=== PATIENT | male | born 1950 | race Caucasian/White ===

== ENCOUNTER 2020-03-01 14:36 | Outpatient (CLI) | payer MEDICARE, SELFPAY ==
--- NOTE | ~2020-03-01 | XR_ITS ---
EXAMINATION: XR foot RT min 3V DATE: 03/01/2020 14:51 INDICATION: Gout. Pain at the right great toe. TECHNIQUE: Dorsoplantar, two oblique and lateral views of the right foot were obtained. COMPARISON: None. FINDINGS: Mild valgus evaluation at the second distal interphalangeal joint with hypoplastic lateral head of th e middle phalanx which could be developmental or sequela of old trauma. Bone alignment is otherwise n ormal. No acute fracture. Mild polyarticular osteoarthritis at multiple joints throughout the right f oot and ankle most prominent at the tibiotalar, first metatarsophalangeal and first interphalangeal j oints. Heterotopic ossicles at the medial and lateral malleoli likely sequela of old trauma. Moderate -sized plantar calcaneal spur. Tiny enthesopathic ossicles at the distal Achilles tendon. No cortical erosions to suggest gout or other inflammatory arthritis. IMPRESSION: 1. No acute osseous abnormality or erosions to suggest an inflammatory arthritis such as gout. 2. Degenerative changes including mild polyarticular osteoarthritis and calcaneal enthesopathy. 2. Heterotopic ossicles at the medial lateral malleolus likely sequela of old trauma. Reviewed, dictated and finalized at location A. IMPRESSION: 1. No acute osseous abnormality or erosions to suggest an inflammatory arthriti s such as gout. 2. Degenerative changes including mild polyarticular osteoarthritis and calcane al enthesopathy. 2. Heterotopic ossicles at the medial lateral malleolus likely sequela of old t rauma.
== END 2020-03-01 14:37 | disposition home or self-care (01) ==
LOC: ANHIMG 14:39
PROVIDERS: PCP Internal Medicine; Visit Provider Internal Medicine
DX: M79.674 Pain in right toe(s) (principal)
CPT/HCPCS: 73630

== ENCOUNTER 2020-06-07 12:14 | Inpatient (IN) | payer MEDICARE, SELFPAY ==
[2020-06-07] VITALS (18 sets, daily range): BP systolic 120–145; BP diastolic 62–74; PULSE 48–71; RESP 16–29; TEMP 35.7–35.9; O2SAT 85–100
--- NOTE | ~2020-06-07 | CT_ITS ---
EXAMINATION: CT brain wo con INDICATION: Dizziness COMPARISON: None TECHNIQUE: Standard unenhanced head CT. The dose-length product (DLP) was 681.00 mGy-cm. The mA was a djusted according to patient size. Iterative reconstruction technique was employed. FINDINGS: There is no intracranial hemorrhage, acute infarction, or abnormal mass lesion. The ventric les are normal. There is no abnormal mass effect or midline shift. The jin-white matter differentiat ion is normal. The basal cisterns are patent. The orbits are normal. There is mild mucosal thickening of the paranasal sinuses. 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 IMPRESSION: 1. No acute intracranial abnormality. Reviewed, dictated and finalized at location A.
--- NOTE | ~2020-06-07 | XR_ITS ---
EXAMINATION: XR abdomen/kub 1V DATE: 06/08/2020 01:15 INDICATION: Vomiting. TECHNIQUE: A supine view of the abdomen on 2 radiographs was obtained. COMPARISON: None. FINDINGS: There are no dilated loops of bowel. There is a moderate volume of stool in the colon. Ther e is contrast in the renal collecting system. IMPRESSION: 1. Nonobstructive bowel gas pattern. Reviewed, dictated and finalized at location A.
--- NOTE | ~2020-06-07 | MR_ITS ---
EXAMINATION: MR brain/brain stem wo/w con EXAM DATE: 06/08/2020 13:43 INDICATION: Intractable dizziness. TECHNIQUE: Magnetic resonance imaging (MRI) of the brain/brain stem obtained without contrast. Sagit flora T1, axial diffusion, gradient echo (T2*), T1, T2, FLAIR sequences obtained. Patient was then inj ected with 18 cc intravenous Multihance contrast. Axial and coronal postcontrast T1 weighted sequence s obtained. Comparison is made to prior examination from 03/16/2016. FINDINGS: There are no areas of restricted diffusion to suggest acute infarction. There is no acute hemorrhage seen on the T2*, a hemosiderin sensitive sequence. No intraparenchymal brain mass lesion. There is mild periventricular and subcortical T2/FLAIR signal hyperintensity, nonspecific but probab ly related to small vessel ischemic disease (microangiopathy). There is prominence of the sulci and ventricles related to cerebral atrophy. There are no extra-axial collections. Flow voids are seen in the cerebral arteries on the T2-weighted sequences consistent with their expected patency. The o rbits are unremarkable. Soft tissue is unremarkable. There are no areas of abnormal enhancement on the post contrast images. IMPRESSION: 1. No acute intracranial findings. 2. Chronic age related findings. Reviewed, dictated and finalized at location B.
--- NOTE | ~2020-06-07 | MR_ITS ---
EXAMINATION: MR cervical spine wo/w con EXAM DATE: 06/08/2020 13:43 INDICATION: Intractable dizziness. TECHNIQUE: Multi-sequential, multiplanar MR images of the cervical spine were obtained without contra st. Axial T2, axial T2 MERGE sequence. Sagittal T1, T2, T2 fat saturation images also obtained. Axi al T1 weighted sequence. Patient was then injected with 18 mL Multihance intravenous contrast and re imaged. Postcontrast axial and sagittal T1-weighted fat saturation sequences were obtained. There ar e no prior studies for comparison. FINDINGS: Mild to moderate disc disease at C5-6, mild at C6-7. The vertebral bodies are aligned in t he AP dimension. There are no suspicious marrow signal abnormalities. The spinal cord signal intensit y and intrinsic morphology is normal. Cervicomedullary junction is normal in appearance. There are no areas of abnormal enhancement on the post contrast images. Level by level evaluation: C2-C3: Disc does not extend beyond the endplate margin. Uncovertebral joint arthropathy: None. Facet joint arthropathy: Moderate right, mild left. Neural foraminal stenosis: Mild right. Central canal stenosis: No stenosis. C3-C4: There is a mild diffuse disc bulge. Uncovertebral joint arthropathy: Moderate right, mild left. Facet joint arthropathy: Moderate bilateral. Neural foraminal stenosis: Moderate to severe right, mild left. Central canal stenosis: Mild. C4-C5: There is a mild diffuse disc bulge. Uncovertebral joint arthropathy: Mild to moderate bilateral. Facet joint arthropathy: Moderate right, mild to moderate left. Neural foraminal stenosis: Moderate bilateral. Central canal stenosis: Mild. C5-C6: There is a mild diffuse disc bulge. Uncovertebral joint arthropathy: Moderate to severe bilateral. Facet joint arthropathy: Moderate to severe right, mild to moderate left. Neural foraminal stenosis: Severe right, moderate to severe left. Central canal stenosis: Mild. C6-C7: There is a minimal diffuse disc bulge. Uncovertebral joint arthropathy: Moderate right, mild to moderate left. Facet joint arthropathy: Moderate right, mild left. Neural foraminal stenosis: Moderate to severe right, mild left. Central canal stenosis: No stenosis. C7-T1: Disc does not extend beyond the endplate margin. Uncovertebral joint arthropathy: Mild bilateral. Facet joint arthropathy: Mild to moderate bilateral. Neural foraminal stenosis: No stenosis. Central canal stenosis: No stenosis. IMPRESSION: 1. Significant mid cervical neural foraminal stenosis as detailed above. 2. Normal cord signal. Reviewed, dictated and finalized at location B.
--- NOTE | ~2020-06-07 | CT_ITS ---
EXAMINATION: CTA brain carotid DATE: 06/07/2020 19:25 INDICATION: Dizziness TECHNIQUE: Computed tomographic angiography (CTA) of the head was performed without and with 100 mL O mnipaque-350 intravenous contrast. CTA of the neck was performed with intravenous contrast. The dose- length product was 1289.16 mGy-cm. Maximum intensity projection and volume rendered 3D-reconstruction s were created by the technologist on a separate workstation. Automated exposure control and iterativ e reconstruction technique were employed. COMPARISON: None. FINDINGS: HEAD CTA: There is no intracranial hemorrhage, acute infarction, or abnormal mass lesion. The ventric les are normal. There is no abnormal mass effect or midline shift. The jin-white matter differentiat ion is normal. The basal cisterns are patent. The orbits are normal. There is mild mucosal thickening of the paranasal sinuses. There is no significant stenosis of the basilar artery or posterior cerebral arteries. There is no si gnificant stenosis of the intracranial internal carotid arteries or the anterior or middle cerebral a rteries. The anterior communicating artery and posterior communicating arteries are normal. There is no aneurysm. NECK CTA: The thyroid gland is unremarkable. The submandibular and parotid glands are symmetric. Ther e is no lymphadenopathy. There are no masses identified. The airway is unremarkable. There are no oss eous abnormalities. The superior mediastinum is unremarkable. 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 There is 0% stenosis of the proximal right internal carotid artery relative to normal distal artery l umen diameter (NASCET criteria). There is 0% stenosis of the proximal left internal carotid artery re lative to normal distal artery lumen diameter. IMPRESSION: 1. No acute intracranial abnormality. Normal head CTA. 2. 0% stenosis of the proximal right internal carotid artery relative to normal distal artery lumen d iameter (NASCET criteria). 3. 0% stenosis of the proximal left internal carotid artery relative to normal distal artery lumen di ameter. Reviewed, dictated and finalized at location A. IMPRESSION: 1. No acute intracranial abnormality. Normal head CTA. 2. 0% stenosis of the proximal right internal carotid artery relative to normal distal artery lumen diameter (NASCET criteria). 3. 0% stenosis of the proximal left internal carotid artery relative to normal distal artery lumen diameter.
--- NOTE | 2020-06-07 12:27 | ECG_ITS ---
Measurements Intervals [place] Rate: 67 P: 15 DC: 132 QRS: 28 QRSD: 105 T: 38 QT: 391 QTc: 414 Interpretive Statements SINUS RHYTHM NORMAL ECG Electronically Signed On 06-07-2020 12:54:03 CDT by Xu Gaines D.O.
[2020-06-07 12:41] LABS: Basophils Percent Auto 0.4 % (0.2-1.2); Eosinophils Absolute Auto 0.1 K/mm3 (0-0.3); Eosinophils Percent Auto 0.7 % (0-4.4); Hemoglobin 14.3 g/dL (14.0-18.0); Immature Granulocyte Absolute 0.01 K/mm3 (0.00-0.031); Immature Granulocyte Percent A 0.1 % (0-0.5); Lymphocytes Absolute Auto 1.42 K/mm3 (0.9-3.2); Lymphocytes Percent Auto 19.1 % (18.3-44.2); Mean Corpuscular HGB Conc 35.8 g/dl (32-36); Mean Corpuscular Hemoglobin 32.1 pg (26-34); Mean Corpuscular Volume 89.9 fl (80-100); Mean Platelet Volume 8.6 fl (7.4-10.4); Monocytes Absolute Auto 0.4 K/mm3 (0.1-0.6); Neutrophils Absolute Auto 5.6 K/mm3 (1.3-6.7); Neutrophils Percent Auto 74.7 % (45.5-73.1); Platelet Count Result 182 k/mm3 (150-375); Red Blood Count 4.45 M/mm3 (4.6-6.20); Red Cell Distribution Width 11.9 % (11.5-14.5); White Blood Count 7.4 K/mm3 (4.5-10.0)
[2020-06-07 12:49] LABS: Anion Gap 11 mmol/L (8-16); Blood Urea Nitrogen 19 mg/dL (9-20); Calcium 9.5 mg/dL (8.4-10.2); Carbon Dioxide 21 mmol/L (22-30); Chloride 103 mmol/L (98-107); Estimated CRCL calculation 79 ml/min; Estimated Glomerular Filt Rate > 60; Glucose 137 mg/dL (75-110); Potassium 4.4 mmol/L (3.4-5.0); Sodium 135 mmol/L (137-145)
--- NOTE | 2020-06-07 17:49 | PC.NURSE ---
PT AGAIN COMPLAINING THAT HE IS NOT IN A ROOM AND IS DIZZY AND IS GOING TO FALL OUT OF THE W/C. VS 70 HR, 18 RR, 100% ON RA, AND BP CLEMENTE 138/71. PT UPDATED ON ROOM SITUATION.
--- NOTE | 2020-06-07 19:46 | ED.GENADULT ---
HPI - General Adult General Chief complaint: Dizziness Stated complaint: came down with a dizzy spell yesterday Time Seen by Provider: 06/07/20 18:57 Source: patient History of Present Illness HPI narrative: Patient is 70 y/o male complaining of severe dizziness since 3:00 PM yesterday. He describes the dizziness as a room spinning sensation. He states that getting up makes his dizziness worse. He has some nausea and vomiting. He denies any focal weakness or numbness. Related Data Home Medications Medication Instructions Recorded Confirmed amitriptyline 25 mg tablet 25 mg PO HS 08/27/19 06/08/20 fluticasone propionate 50 2 spray NASAL DAILY 08/27/19 06/08/20 mcg/actuation nasal spray,suspension loratadine 10 mg tablet 10 mg PO DAILY 08/27/19 06/08/20 omega-3 fatty acids 1,000 mg 1,000 mg PO BID 08/27/19 06/08/20 capsule tamsulosin 0.4 mg capsule 0.4 mg PO BID cap 08/27/19 06/08/20 diltiazem HCl 180 mg PO DAILY 06/08/20 06/08/20 lisinopril 10 mg PO DAILY 06/08/20 06/08/20 Allergies Allergy/AdvReac Type Severity Reaction Status Date / Time Sulfa (Sulfonamide Allergy Intermediate Rash Verified 06/07/20 12:27 Antibiotics) PROPOXYPHENE HCL Allergy Unknown Nervousness Uncoded 06/07/20 12:27 PROPOXYPHENE NAPSYLATE Allergy Unknown Nervousness Uncoded 06/07/20 12:27 Review of Systems Constitutional: Constitutional: Denies chills, Denies fever(s), Denies headache(s) and Denies weakness Eyes: Eyes: Denies blurry vision ENT: Denies headache(s) and Denies neck pain Cardiovascular: Cardiovascular: Denies chest pain and Denies dyspnea Respiratory: Respiratory: Denies cough and Denies dyspnea Gastrointestinal: Gastrointestinal: Denies abdominal pain, Denies diarrhea, Reports nausea and Reports vomiting Genitourinary: Genitourinary: Denies hematuria and Denies dysuria Musculoskeletal: Musculoskeletal: Denies back pain and Denies neck pain Neurologic: Reports dizziness, Denies headache(s) and Denies weakness [facility] Past Medical History Medical History (Updated 06/08/20 @ 12:18 by Romelia Sexton MD) Allergies Chronic sinusitis Essential (primary) hypertension Fungal infection of toenail Gout Hyperlipidemia Lower urinary tract symptoms (LUTS) Migraines Right foot pain Surgical History Surgical History (Updated 06/08/20 @ 09:15 by Bella Bright PA-C) History of ankle surgery Hx of sinus surgery Family History Family History (Updated 06/08/20 @ 09:16 by Bella Bright PA-C) Mother Diabetes mellitus Coronary artery disease Father Coronary artery disease Sibling Parkinson disease Sibling Parkinson disease Social History Social History (Updated 06/08/20 @ 09:20 by Bella Bright PA-C) Social History: Mr. Laboy lives in [place] with his Alaina. 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 He denies alcohol use, and other illicit substance use. He wishes to be a full code and he has designated his , Alaina Laboy, to be his surrogate decision maker. Smoking status: Never smoker Alcohol intake: never Substance use: never Substance use type: does not use Living arrangements: with family Occupation/Education: other Gender identity (if verbalized by the patient): Male Spiritual care concerns: No Exam Const: General: no acute distress and well developed Orientation/consciousness: oriented to person, oriented to place, oriented to time and patient oriented x3 HENMT: Head: normocephalic Ears: external ears normal General nose exam: Normal external nose present Eyes: General: appearance normal, both eyes and all related structures Conjunctivae: conjunctivae normal Neck: Neck: normal visual inspection and full ROM Chest: Chest palpation & inspection: normal inspection of the chest and no tenderness Resp: Effort & Inspection: normal respiratory effort Auscultation: clear to ausculta
[2020-06-07] MEDS: MECLIZINE HCL 25 MG TABLET PO (20:05)
[2020-06-07] MEDS: ONDANSETRON INJ 4 MG/2 ML VIAL IV PUSH (20:05)
[2020-06-07] MEDS: diazePAM INJ (*CRX) 10 MG/2 ML SYRINGE 5 MG IV PUSH (22:35)
--- NOTE | 2020-06-07 23:35 | ADMGEN ---
This patient, Elia Laboy, was admitted to 2 Medical Room 241-. Patient/family oriented to hospital policies and general routines including ID bracelet, bed and alarms, visiting hours, pain management, procedures, bathroom and other care routines, personal items, smoking policy, room service/diet, and visiting hours. Valuables list has been completed. Information on how to activate the Rapid Response Team has been discussed. Patient/Family are encouraged to report perceived risks to care and to ask questions if they do not understand what they are told or what they should do.
[2020-06-08] VITALS (14 sets, daily range): BP systolic 133–160; BP diastolic 52–72; PULSE 48–78; RESP 16–20; TEMP 36.1–36.7; O2SAT 98–100; BMI 26.4
[2020-06-08] MEDS: SODIUM CHLORIDE 0.9% IV 1,000 ML 999 ML IV CONT ×2 (02:46→03:44)
[2020-06-08] MEDS: ONDANSETRON INJ 4 MG/2 ML VIAL IV PUSH (02:50)
[2020-06-08] MEDS: SODIUM CHLORIDE 0.9% IV 1,000 ML 100 ML IV CONT ×2 (04:53→17:52)
--- NOTE | 2020-06-08 08:54 | PM.IMHP ---
H&P: HPI History of Present Illness Date/Time: 06/08/20 08:54 Chief complaint: dizziness Narrative: Elia Laboy is a 70 year old male with PMH significant for migraine headaches, hypertension, hyperlipidemia, gout, lower urinary tract symptoms, and allergies who presented to the emergency department for the evaluation of dizziness. Symptoms started Sunday06/06/20 at 3:30PM. He reports that he went to the park to have a socially distanced meal with friends. He started to drive home and felt very dizzy. He reports an associated migraine at that time but cannot remember if the dizziness or migraine started first. He describes that he feels both the room is spinning and he is spinning intermittently. He developed vomiting at noon yesterday and has vomited 10x since then. His dizziness is worse with standing up. He notes relief with meclizine. Valium made his symptoms worse. He denies associated vision change, speech change, hearing change, tinnitus, ear drainage or discharge, unilateral weakness, paresthesias, dysphagia, and photophobia. He has no prior hx of vertigo or similar episodes. He has not had much to eat or drink since his symptoms started. He continues to have nausea. His last episode of vomiting was overnight but he began to feel nauseous after clear liquids today. Review of Systems Review of Systems: Narrative: Constitutional: Denies fever, chills, fatigue, sick contacts, and appetite change. Eyes: Denies vision change. Denies photophobia. Denies diplopia. No additional eye complaints. ENT: Denies change in hearing, tinnitus, nasal congestion, dysphagia, odynophagia, and sore throat. Cardiovascular: Denies palpitations and chest pain. Denies PND and orthopnea. Denies dyspnea on exertion. Respiratory: Denies cough and shortness of breath. Gastrointestinal: Denies abdominal pain,. Reports associated nausea and vomiting with dizziness. Genitourinary: Denies dysuria, urgency, and hesitancy. Reports hx of increased urinary frequency which is relieved with tamsulosin. Musculoskeletal: Denies joint pain and swelling. Denies muscle cramps and weakness. Skin: Denies lesions and wounds. Neurologic: Denies focal weakness, paresthesias, confusion, vision change, headache, and speech change. Reports hx of migraines for 5 years. Psychiatric: Denies mood change. Denies anxiety and depression. Hematologic: Denies easy bruising and bleeding. All systems reviewed & are unremarkable except as noted in HPI and below PMFSH Past Medical History Medical History (Updated 06/08/20 @ 12:18 by Romelia Sexton MD) Allergies Chronic sinusitis Essential (primary) hypertension Fungal infection of toenail Gout Hyperlipidemia Lower urinary tract symptoms (LUTS) Migraines Right foot pain Surgical History Surgical History (Updated 06/08/20 @ 09:15 by Bella Bright PA-C) History of ankle surgery Hx of sinus surgery Family History Family History (Updated 06/08/20 @ 09:16 by Bella Bright PA-C) Mother Diabetes mellitus Coronary artery disease Father Coronary artery disease Sibling Parkinson disease Sibling Parkinson disease Social History Social History (Updated 06/08/20 @ 09:20 by Bella Bright PA-C) Social History: Mr. Laboy lives in [place] with his Alaina. 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 He denies alcohol use, and other illicit substance use. He wishes to be a full code and he has designated his , Alaina Laboy, to be his surrogate decision maker. Smoking status: Never smoker Alcohol intake: never Substance use: never Substance use type: does not use Living arrangements: with family Occupation/Education: other Gender identity (if verbalized by the patient): Male Spiritual care concerns: No Meds Home Medications and Allergies Home Medications Medication Instructions Recorded Confirmed Type amitriptyline 2
[2020-06-08] MEDS: allopurinoL 100 MG TABLET PO (09:15)
[2020-06-08] MEDS: FLUTICASONE PROPIONATE 0.05% NA SPR 16 GM BTL (*BKC) 2 SPRAY NASAL (09:15)
[2020-06-08] MEDS: EZETIMIBE 10 MG TABLET PO (09:15)
[2020-06-08] MEDS: TAMSULOSIN HCL 0.4 MG CAPSULE PO ×2 (09:15→16:30)
[2020-06-08] MEDS: MECLIZINE HCL 12.5 MG TABLET 25 MG PO ×4 (09:15→20:33)
[2020-06-08] MEDS: lisinopriL 10 MG TABLET PO (09:15)
[2020-06-08] MEDS: OMEGA 3 POLYUNSAT FATTY ACIDS 1 GM CAP PO ×2 (09:15→16:30)
[2020-06-08] MEDS: LORATADINE 10 MG TABLET PO (09:16)
[2020-06-08] MEDS: dilTIAZem HCL CD 180 MG CAP.ER.24H PO (09:16)
[2020-06-08] MEDS: ENOXAPARIN 40 MG/0.4 ML SYRINGE SUB-Q (10:17)
[2020-06-08] MEDS: predniSONE 20 MG TABLET 60 MG PO (17:52)
[2020-06-08] MEDS: AMITRIPTYLINE HCL 25 MG TABLET PO (20:33)
[2020-06-09] VITALS (7 sets, daily range): BP systolic 124–138; BP diastolic 48–55; PULSE 46–81; RESP 15–16; TEMP 36.7–36.8; O2SAT 96–100
[2020-06-09] MEDS: SODIUM CHLORIDE 0.9% IV 1,000 ML 100 ML IV CONT (02:25)
[2020-06-09 05:05] LABS: Anion Gap 5 mmol/L (8-16); Blood Urea Nitrogen 17 mg/dL (9-20); Calcium 8.9 mg/dL (8.4-10.2); Carbon Dioxide 24 mmol/L (22-30); Chloride 107 mmol/L (98-107); Estimated CRCL calculation 72 ml/min; Estimated Glomerular Filt Rate > 60; Glucose 137 mg/dL (75-110); Potassium 4.6 mmol/L (3.4-5.0); Sodium 136 mmol/L (137-145)
[2020-06-09] MEDS: MECLIZINE HCL 12.5 MG TABLET 25 MG PO (08:08)
[2020-06-09] MEDS: FLUTICASONE PROPIONATE 0.05% NA SPR 16 GM BTL (*BKC) 2 SPRAY NASAL (08:08)
[2020-06-09] MEDS: OMEGA 3 POLYUNSAT FATTY ACIDS 1 GM CAP PO (08:09)
[2020-06-09] MEDS: dilTIAZem HCL CD 180 MG CAP.ER.24H PO (08:09)
[2020-06-09] MEDS: allopurinoL 100 MG TABLET PO (08:10)
[2020-06-09] MEDS: lisinopriL 10 MG TABLET PO (08:11)
[2020-06-09] MEDS: TAMSULOSIN HCL 0.4 MG CAPSULE PO (08:11)
[2020-06-09] MEDS: ENOXAPARIN 40 MG/0.4 ML SYRINGE SUB-Q (08:11)
[2020-06-09] MEDS: predniSONE 20 MG TABLET 60 MG PO (08:11)
[2020-06-09] MEDS: LORATADINE 10 MG TABLET PO (08:12)
--- NOTE | 2020-06-09 08:25 | PM.DS ---
DS: Admitting Diagnosis Admitting Diagnosis Admitting Diagnosis: dizziness DS: Discharge Diagnosis Discharge Diagnosis (1) Vestibular neuritis: Code(s): H81.20 - Vestibular neuronitis, unspecified ear Status: Acute Assessment and Plan: Discharge Summary (Date of service 06/09/20): Mr. Laboy is a 70 y.o. male with PMH significant for migraine headaches, hypertension, hyperlipidemia, gout, lower urinary tract symptoms, and allergies who presented to the emergency department for the evaluation of dizziness. He reported a sudden onset of dizziness with associated nausea, vomiting, and gait instability. He denied associated vision change, speech change, hearing change, tinnitus, ear drainage or discharge, unilateral weakness, paresthesias, dysphagia, and photophobia. He had no prior hx of vertigo or similar episodes. Initial workup in the emergency department included CT brain and CTA head/neck which were unremarkable. He was admitted to the hospitalist service and treated with meclizine and valium. Valium made his sx worse. I spoke with neurology who recommended MRI brain and cervical spine. MRI brain showed no evidence of stroke and cervical spine MRI demonstrated mid cervical neural foraminal stenosis. His clinical presentation was consistent with vestibular neuritis and he improved significantly following steroid therapy with near resolution of his dizziness and no further vomiting, nausea, or gait instability. He will continue a glucocorticoid taper at discharge with meclizine PRN. He ambulated in the room without difficulty and tolerated PO intake well. I consulted PT/OT who felt he was at his baseline and demonstrated good balance, lower extremity strength, and independence with mobility. I have referred him for outpatient vestibular therapy. He requested to go home and was discharged in stable condition on the morning of 06/09/20. (2) Nausea and vomiting: Code(s): R11.2 - Nausea with vomiting, unspecified Status: Resolved Assessment and Plan: Treated with supportive care with zofran PRN. His nausea and vomiting resolved with resolution of his dizziness. (3) Dehydration: Code(s): E86.0 - Dehydration Status: Resolved Assessment and Plan: The pt was clinically dehydrated with minimal urine output. This was likely secondary to very poor PO intake since onset of dizziness. He received 2 liter fluid bolus maintenance fluids. Urine output improved and his nausea/vomiting resolved. (4) Essential (primary) hypertension: Code(s): I10 - Essential (primary) hypertension Status: Chronic Assessment and Plan: Lisinopril and diltiazem were continued. Blood pressures were well-controlled. (5) Hyperlipidemia: Code(s): E78.5 - Hyperlipidemia, unspecified Status: Chronic Assessment and Plan: Ezetimibe and omega-3 were continued. He has statin intolerance. (6) Lower urinary tract symptoms (LUTS): Code(s): R39.9 - Unspecified symptoms and signs involving the genitourinary system Status: Chronic Assessment and Plan: Tamsulosin was continued. (7) Migraines: Code(s): G43.909 - Migraine, unspecified, not intractable, without status migrainosus Status: Chronic Assessment and Plan: He is established with Dr. Holley at [facility]. Amitriptyline and diltiazem were continued. (8) Cervical spinal stenosis: Code(s): M48.02 - Spinal stenosis, cervical region Status: Chronic Assessment and Plan: MRI cervical spine demonstrated cervical stenosis with moderate to severe stenosis at C3-C4, C5-C6, C6-C7 as well as moderate stenosis C4-C5. I discussed this finding with the patient and encouraged him to follow-up with his primary care doctor and neurosurgery should he develop symptoms including neck, shoulder, or arm pain, muscle weakness, or sensory symptoms. DS: Summary Ho
== END 2020-06-09 10:03 | disposition home or self-care (01) | DRG 149 ==
LOC: ANHED 19:38 → ANH2MED 22:50
PROVIDERS: Emergency Medicine; Physician Assistant; Admitting Provider Internal Medicine; Emergency Provider Emergency Medicine; PCP Internal Medicine; Visit Provider Internal Medicine
DX: H81.20 Vestibular neuronitis, unspecified ear (principal); R11.2 Nausea with vomiting, unspecified; E86.0 Dehydration; I10 Essential (primary) hypertension; E78.5 Hyperlipidemia, unspecified; G43.909 Migraine, unspecified, not intractable, without status migrainosus; M48.02 Spinal stenosis, cervical region; R39.9 Unspecified symptoms and signs involving the genitourinary system; M10.9 Gout, unspecified; Z28.21 Immunization not carried out because of patient refusal; Z79.899 Other long term (current) drug therapy
CPT/HCPCS: 36415; 70450; 70496; 70498; 70553; 72156; 74018; 80048; 85025; 93005; 96361; 96372; 96374; 96375; 96376; 97161; 97165; 99285; A9270; A9577; G0378; J1650; J2405; J3360; J7030; J7512; Q9967

== ENCOUNTER 2020-06-16 09:33 | Outpatient (RCR) | payer MEDICARE, SELFPAY ==
--- NOTE | 2020-06-16 11:30 | PTOPEVAL ---
PHYSICAL THERAPY EVALUATION AND PLAN OF CARE 06-16-2020 The PT evaluation was completed today for the diagnosis of vestibular neuritis. His dizziness symptoms have almost resolved. Umair was educated on a home exercise program for improved eye tracking and general vestibular information. His blood pressure at rest today is 107/60. He has a BP cuff at home, and he was instructed to take his BP at various times of the day to track any changes. The plan of care is scheduled for 0-2x/week for 4 weeks. He is to call if he has any further questions or if the dizziness returns and requires additional treatment. Thank you for referring Elia Laboy to [facility].? Please review, sign, date and return this plan of care NIRMAL. I agree with and certify that the following plan of care is medically necessary. Referring Physician Date Attending Provider: Donald Cheng DO *PT Outpatient Evaluation Document 06/16/20 10:00 LIBERTY (Rec: 06/16/20 11:20 LIBERTY [id number]) Outpatient Past Medical History Past Medical History Source of Past Medical History Patient,Recalled from Previous Visit, Confirmed with Patient /Family Neurological History Hx Migraine Yes: 1-2x/month, last all day Cardiovascular History Hx Hypercholesterolemia Yes: meds Hx Hypertension Yes: meds, recent change meds, was 105/70; norm 120/80 Respiratory History Hx Respiratory Disorders No Significant History Gastrointestinal History Hx Gastrointestinal Disorders No Significant History Genitourinary History Hx Urinary Tract Infection Yes: prostate infections- follow with urologist Musculoskeletal History Hx Fractures Yes: right wrist and left wrist Hx Other Musculoskeletal Disorders Yes: left middle finger reconstructive surgery, ankle bone spur removed Hematological History Hx Blood Transfusions Yes Endocrine History Hx Endocrine Disorders No Significant History HEENT History Hx Sinus Problems Yes: sinus infections, less since sinus surgery- see below Hx Other HEENT Disorders Yes: broken nose yr ago-had reconstruct surgery &sinus surgery 3 yr ago Integumentary History Hx Eczema Yes Hx Other Skin Disorders Yes: pre cancerous cells on arms and face Reproductive History Hx Reproductive Disorders No Significant History Psychosocial History Hx Psychiatric Disorders No Significant History Pain History History of Any Previous or Ongoing No Significant History Instance of Pain Anesthesia History Hx Anesthesia Reactions No Significant History Other History Hx Cancer Y
--- NOTE | 2021-04-22 14:44 | PCPTNOTE ---
PHYSICAL THERAPY DISCHARGE 04-22-21 Attending Provider: Donald Cheng DO Patient:Elia Laboy Date of :1950 LATE ENTRY: Mr. Laboy has not returned for any further treatments after the initial eval on 06/16/2020 for the diagnosis of vestibular therapy Thank you for referring this patient to [facility]. Please review, sign, date and return this discharge summary NIRMAL. I have been updated about the patient's current status and I agree with discharge from the above service at this time. Referring Physician Date
== END 2020-09-14 23:59 | disposition home or self-care (01) ==
LOC: ANHPT 09:33
PROVIDERS: PCP Internal Medicine; Visit Provider Internal Medicine
DX: H81.20 Vestibular neuronitis, unspecified ear (principal)
CPT/HCPCS: 97161

== ENCOUNTER 2023-02-01 15:23 | Outpatient (CLI) | payer MEDICARE, SELFPAY ==
--- NOTE | ~2023-02-01 | XR_ITS ---
EXAMINATION: XR sinus min 3V DATE: 02/01/2023 15:48 INDICATION: Migraine, unspecified, not intractable. TECHNIQUE: 5 views of the paranasal sinuses were obtained. COMPARISON: CTA head 06/07/2020 FINDINGS: There is leftward deviation of the nasal septum. The paranasal sinuses are grossly clear. IMPRESSION: 1. No specific etiology for the patient's symptoms. Reviewed, dictated and finalized at location A.
== END 2023-02-01 15:24 | disposition home or self-care (01) ==
LOC: ANHIMG 15:25
PROVIDERS: PCP Family Medicine; Visit Provider Family Medicine
DX: G43.909 Migraine, unspecified, not intractable, without status migrainosus (principal)
CPT/HCPCS: 70220

== ENCOUNTER 2024-03-13 12:33 | Outpatient (CLI) | payer MEDICARE, SELFPAY ==
--- NOTE | ~2024-03-13 | MR_ITS ---
MR brain/brain stem wo con Ordering provider: Patricia López MD History: 73 years Male with . R47.1 - Dysarthria and anarthria . Comparison: MRI done on June 08, 2020 Technique: MRI brain was performed without contrast. FINDINGS: BONES: Normal. CRANIOCERVICAL JUNCTION: normal. PITUITARY: Normal. MAJOR INTRACRANIAL VESSELS: Normal flow void. OPTIC NERVES AND CRANIAL NERVES VII AND VIII COMPLEXES: Grossly normal. BRAIN PARENCHYMA AND CSF SPACES: Mild nonspecific T2 white matter hyperintensities are seen in a cristiane ateral periventricular and deep white matter distribution which are likely related to chronic ischemi c small vessel disease. Mild diffuse cortical atrophy. The brainstem and cerebellum are normal. No ac hoopa or chronic intracranial hemorrhage. No extra axial fluid collections. Diffusion weighted and ADC mapping images reveal very small focus of diffusion restriction is seen in the right orbit reticular area in the frontal lobe image 21 of the diffusion weighted images.. No midline shift or mass effect. PARANASAL SINUSES: Minimal ethmoid sinus disease. MASTOIDS: Normal SUPERFICIAL/SURROUNDING SOFT TISSUES: Normal. IMPRESSION: 1. Very tiny area of diffusion restriction seen in the right periventricular region of the frontal l obe which may indicate lacunar infarcts otherwise unremarkable study. Reviewed, dictated and finalized at location A. IMPRESSION: 1. Very tiny area of diffusion restriction seen in the right periventricular r egion of the frontal lobe which may indicate lacunar infarcts otherwise unremar kable study.
--- NOTE | ~2024-03-13 | MR_ITS ---
EXAMINATION: MR cervical spine wo con DATE: 03/13/2024 13:39 INDICATION: Weakness. TECHNIQUE: Magnetic resonance imaging (MRI) of the cervical spine was performed without intravenous c ontrast. COMPARISON: Cervical spine MRI 06/08/2020 FINDINGS: There is 11 degrees levoscoliosis of the cervicothoracic spine. Vertebral body heights are normal. There is moderately decreased disc height at C5-C6 and mildly decreased disc height at C6-C7. The spinal cord signal intensity is normal. The following disc levels are specifically discussed: C2-C3: The disc does not extend beyond the endplate margin. There is no uncovertebral joint osteoarth ritis. There is severe right and mild left facet joint osteoarthritis. There is no neural foraminal s tenosis. There is no central canal stenosis. C3-C4: There is a central extrusion. There is moderate right and mild left uncovertebral joint osteoa rthritis. There is severe bilateral facet joint osteoarthritis. There is moderate right and mild left neural foraminal stenosis. There is mild central canal stenosis. C4-C5: There is a central extrusion. There is moderate bilateral uncovertebral joint osteoarthritis. There is severe right and moderate left facet joint osteoarthritis. There is mild bilateral neural fo raminal stenosis. There is mild central canal stenosis. C5-C6: The disc is bulging. There is severe lateral uncovertebral joint osteoarthritis. There is mode rate bilateral facet joint osteoarthritis. There is moderate bilateral neural foraminal stenosis. The re is mild central canal stenosis. C6-C7: The disc is bulging. There is severe right and moderate left uncovertebral joint osteoarthriti s. There is moderate right and mild left facet joint osteoarthritis. There is mild bilateral neural f oraminal stenosis. There is no central canal stenosis. C7-T1: The disc does not extend beyond the endplate margins. There is no uncovertebral joint osteoart hritis. There is severe bilateral facet joint osteoarthritis. There is mild right neural foraminal st enosis. There is no central canal stenosis. IMPRESSION: 1. Moderate cervical spondylosis, stable from 06/08/2020. Reviewed, dictated and finalized at location A.
== END 2024-03-13 12:34 ==
LOC: GOSHIMG 12:34
PROVIDERS: PCP Family Medicine; Visit Provider Student in an Organized Health Care Education/Training Program
DX: R53.1 Weakness (principal); R47.1 Dysarthria and anarthria; M43.02 Spondylolysis, cervical region
CPT/HCPCS: 70551; 72141

== ENCOUNTER 2024-03-14 12:24 | Outpatient (CLI) | payer MEDICARE, SELFPAY ==
--- NOTE | ~2024-03-14 | MR_ITS ---
EXAMINATION: MR thoracic spine wo con DATE: 03/14/2024 13:13 INDICATION: Weakness. Loss of balance. Tremors in both hands. TECHNIQUE: Magnetic resonance imaging (MRI) of the thoracic spine was performed without intravenous c ontrast. COMPARISON: None FINDINGS: There is 11 degrees levoscoliosis of cervicothoracic spine. There is mild chronic anterior wedging of T12 vertebral body. There is mildly decreased disc height space. Intervertebral disc heigh ts are normal. There is multilevel mild facet joint osteoarthritis. At T11-T12, the disc is bulging w ith mild central canal stenosis and mild left neural foraminal stenosis. The spinal cord signal inten sity is normal. IMPRESSION: 1. Mild thoracic spondylosis. 2. Cervicothoracic levoscoliosis. Reviewed, dictated and finalized at location E.
--- NOTE | ~2024-03-14 | MR_ITS ---
EXAMINATION: MR lumbar spine wo con DATE: 03/14/2024 13:13 INDICATION: Weakness. Loss of balance. TECHNIQUE: Magnetic resonance imaging (MRI) of the lumbar spine was performed without intravenous con trast. Sequences included sagittal T2-weighted FSE, sagittal T2-weighted FS FSE, sagittal T1-weighted FSE, and axial T2-weighted FSE. COMPARISON: None FINDINGS: There is 6 degrees dextrocurvature of thoracolumbar spine. Vertebral body heights are alondra l in lumbar spine. Intervertebral disc heights are normal in lumbar spine. The distal spinal cord sig nal intensity is normal. The conus medullaris is at T12-L1. The following disc levels are specificall y discussed: L1-L2: The disc is bulging and has an annular fissure. There is moderate right and mild left facet snow int osteoarthritis. There is mild bilateral neural foraminal stenosis. There is mild central canal st enosis. L2-L3: There is a right foraminal protrusion. There is moderate bilateral facet joint osteoarthritis. There is mild bilateral neural foraminal stenosis. There is no central canal stenosis. L3-L4: There is a left foraminal protrusion. There is moderate bilateral facet joint osteoarthritis. There is mild left neural foraminal stenosis. There is no central canal stenosis. L4-L5: The disc is bulging and has an annular fissure. There is severe bilateral facet joint osteoart hritis. There is mild bilateral neural foraminal stenosis. There is mild central canal stenosis. L5-S1: The disc is bulging and has an annular fissure. There is severe bilateral facet joint osteoart hritis. There is mild bilateral neural foraminal stenosis. There is mild central canal stenosis. IMPRESSION: 1. Mild lumbar spondylosis. Reviewed, dictated and finalized at location E. IMPRESSION: 1. Mild lumbar spondylosis.
== END 2024-03-14 12:25 ==
LOC: GOSHIMG 12:25
PROVIDERS: PCP Family Medicine; Visit Provider Student in an Organized Health Care Education/Training Program
DX: R53.1 Weakness (principal); M43.04 Spondylolysis, thoracic region; M41.83 Other forms of scoliosis, cervicothoracic region; M43.06 Spondylolysis, lumbar region
CPT/HCPCS: 72146; 72148

== ENCOUNTER 2024-05-22 13:48 | Outpatient (CLI) | payer MEDICARE, SELFPAY ==
--- NOTE | ~2024-05-22 | XR_ITS ---
EXAMINATION: XR hand LT 2V DATE: 05/22/2024 14:29 INDICATION: Multiple joint pain. TECHNIQUE: 2 views of left hand were obtained. COMPARISON: None. FINDINGS: Bone alignment is normal. No fracture. There is mild osteoarthritis of triscaphe joint and severe osteoarthritis of first carpometacarpal joint. There is a loose body of first carpometacarpal joint. There is mild osteoarthritis of many of the metacarpophalangeal joints and interphalangeal john nts. There is moderate osteoarthritis of second and third metacarpophalangeal joints, first interphal angeal joint, third proximal interphalangeal joint, and second and third distal interphalangeal joint s. IMPRESSION: 1. Polyarticular osteoarthritis. Reviewed, dictated and finalized at location A.
--- NOTE | ~2024-05-22 | XR_ITS ---
EXAMINATION: XR wrist RT 2V DATE: 05/22/2024 14:28 INDICATION: Multiple joint pain. TECHNIQUE: 2 views of right wrist were obtained. COMPARISON: None. FINDINGS: Alignment is normal. No fracture. There is severe osteoarthritis of distal radioulnar joint and mild osteoarthritis of triscaphe joint and first carpometacarpal joint. There is a loose body of first carpometacarpal joint. IMPRESSION: 1. Polyarticular osteoarthritis. Reviewed, dictated and finalized at location A.
--- NOTE | ~2024-05-22 | XR_ITS ---
EXAMINATION: XR foot RT 2V DATE: 05/22/2024 14:29 INDICATION: Multiple joint pain. TECHNIQUE: 2 views of right foot were obtained. COMPARISON: None. FINDINGS: Alignment is normal. No fracture. There is moderate osteoarthritis of first metatarsophalan geal joint and mild to moderate osteoarthritis of some of the interphalangeal joints and midfoot join ts. There are enthesophytes at the posterior and plantar aspects of calcaneal tuberosity. IMPRESSION: 1. Polyarticular osteoarthritis. Reviewed, dictated and finalized at location A.
--- NOTE | ~2024-05-22 | XR_ITS ---
EXAMINATION: XR sacroiliac joints min 3V DATE: 05/22/2024 14:29 INDICATION: Multiple joint pain. TECHNIQUE: 3 views of the sacroiliac joints on 4 radiographs were obtained. COMPARISON: None. FINDINGS: Alignment is normal. No fracture. There is mild osteoarthritis of the sacroiliac joints. Th ere is moderate osteoarthritis of right hip joint and mild osteoarthritis of left hip joint. IMPRESSION: 1. Polyarticular osteoarthritis. Reviewed, dictated and finalized at location A.
--- NOTE | ~2024-05-22 | XR_ITS ---
EXAMINATION: XR ankle RT 2V DATE: 05/22/2024 14:29 INDICATION: Multiple joint pain. TECHNIQUE: 2 views of right ankle were obtained. COMPARISON: None. FINDINGS: Alignment is normal. No fracture. There is heterotopic ossification distal to medial and la teral malleoli. There is mild osteoarthritis of the ankle joint and mild to moderate osteoarthritis o f some of the midfoot joints. There are enthesophytes at the posterior and plantar aspects of calcane al tuberosity. IMPRESSION: 1. Polyarticular osteoarthritis. Reviewed, dictated and finalized at location A.
--- NOTE | ~2024-05-22 | XR_ITS ---
EXAMINATION: XR foot LT 2V DATE: 05/22/2024 14:29 INDICATION: Multiple joint pain. TECHNIQUE: 2 views of left foot were obtained. COMPARISON: None. FINDINGS: Bone alignment is normal. No fracture. There is moderate osteoarthritis of first metatarsop halangeal joint and mild osteoarthritis of some of the interphalangeal joints and midfoot joints. The re are enthesophytes at the posterior and plantar aspects of calcaneal tuberosity. IMPRESSION: 1. Polyarticular osteoarthritis. Reviewed, dictated and finalized at location A.
--- NOTE | ~2024-05-22 | XR_ITS ---
EXAMINATION: XR hand RT 2V DATE: 05/22/2024 14:29 INDICATION: Multiple joint pain. TECHNIQUE: 2 views of right hand were obtained. COMPARISON: None. FINDINGS: Bone alignment is normal. No fracture. There is mild osteoarthritis of triscaphe joint and first carpometacarpal joint. There is a loose body in first carpometacarpal joint. There is mild oste oarthritis of many of the metacarpophalangeal joints and interphalangeal joints. There is moderate os teoarthritis of second metacarpophalangeal joint with loose bodies. There is a loose body in third me tacarpophalangeal joint. There is moderate osteoarthritis of first interphalangeal joint and third di stal interphalangeal joint and severe osteoarthritis of second distal interphalangeal joint. There is a periarticular calcification at second distal interphalangeal joint. IMPRESSION: 1. Polyarticular osteoarthritis. Reviewed, dictated and finalized at location A.
--- NOTE | ~2024-05-22 | XR_ITS ---
EXAMINATION: XR wrist LT 2V DATE: 05/22/2024 14:28 INDICATION: Multiple joint pain. TECHNIQUE: 2 views of left wrist were obtained. COMPARISON: None. FINDINGS: Alignment is normal. No fracture. There is severe osteoarthritis of distal radioulnar joint , mild osteoarthritis of triscaphe joint, and severe osteoarthritis of first carpometacarpal joint. T here is a loose body in first carpometacarpal joint. IMPRESSION: 1. Polyarticular osteoarthritis. Reviewed, dictated and finalized at location A.
--- NOTE | ~2024-05-22 | XR_ITS ---
EXAMINATION: XR ankle LT 2V DATE: 05/22/2024 14:29 INDICATION: Multiple joint pain. TECHNIQUE: 2 views of left ankle were obtained. COMPARISON: None. FINDINGS: Alignment is normal. No fracture. There is heterotopic ossification distal to medial malleo max. There is mild to moderate osteoarthritis of the ankle joint and some of the midfoot joints. Ther e are enthesophytes at the posterior and plantar aspects of calcaneal tuberosity. IMPRESSION: 1. Polyarticular osteoarthritis. Reviewed, dictated and finalized at location A.
== END 2024-05-22 13:49 | disposition home or self-care (01) ==
PROVIDERS: PCP Nurse Practitioner; Visit Provider Nurse Practitioner
DX: R53.81 Other malaise (principal); M19.042 Primary osteoarthritis, left hand; M19.041 Primary osteoarthritis, right hand; M19.072 Primary osteoarthritis, left ankle and foot; M19.071 Primary osteoarthritis, right ankle and foot; M19.032 Primary osteoarthritis, left wrist; M19.031 Primary osteoarthritis, right wrist
CPT/HCPCS: 72202; 73100; 73120; 73600; 73620

== ENCOUNTER 2024-05-30 09:00 | Outpatient (RCR) | payer MEDICARE, SELFPAY ==
--- NOTE | 2024-03-08 12:14 | PTOPEVAL1 ---
Assessment and note entered by Cinda oByd, PT Evaluation Information Assessment Status Evaluation Diagnosis Weakness, gait abnormalities Onset approx 3 years ago Subjective Information Pt reports feeling occasional motion sickness which is random in occurrence for some time , states is worsening; has an upcoming appointment for ENT, has seen Neurologist for other issues with memory and weakness. States he has been experiencing stiffness and difficulty with lifting and moving around, his told him she noticed resting tremors on his hands. He reports that his family members, his sister has been diagnosed with Parkinson's Disease. Reports has 17 steps with railing at home which he uses daily, he is apprehensive due to fear of falling. He repeatedly says he has somewhat severe intolerance to heat . Assessment PT Clinical Summary Pt presents to therapy with weakness, balance deficits, muscle imbalance, postural and gait impairments resulting to unsteadiness when on his feet. He will benefit from Skilled PT to improve functional mobility and reduce risk for falls. Plan of Care Interventions Gait Training,Manual Therapy,Neuro Re-education, Patient/Caregiver Education,Therapeutic Activities, Therapeutic Exercise PT Services Indicated Yes Treatment Frequency and 2x/wk x 10 visits Duration These treatments will address the objective and functional deficits as defined above. The patient will be advanced safely and appropriately in order for the patient to progress towards his/her prior level of function. Additional exercises will be introduced and as well as a comprehensive home exercise program upon discharge, if needed, ?to ensure carryover of functional gains achieved in the clinic. This treatment plan has been reviewed and agreement upon by the patient.
--- NOTE | 2024-03-10 18:17 | PTOPEVAL1 ---
Assessment and note entered by Cinda Boyd, PT Evaluation Information Assessment Status Evaluation Diagnosis Weakness, gait abnormalities Onset approx 3 years ago Subjective Information Pt reports feeling occasional motion sickness which is random in occurrence for some time , states is worsening; has an upcoming appointment for ENT, has seen Neurologist for other issues with memory and weakness. States he has been experiencing stiffness and difficulty with lifting and moving around, his told him she noticed resting tremors on his hands. He reports that his family members, his sister has been diagnosed with Parkinson's Disease. Reports has 17 steps with railing at home which he uses daily, he is apprehensive due to fear of falling. He repeatedly says he has somewhat severe intolerance to heat . Assessment PT Clinical Summary Pt presents to therapy with weakness, balance deficits, muscle imbalance and mild rigidity, stiffness, postural and gait impairments resulting to unsteadiness when on his feet. He will benefit from Skilled PT to improve functional mobility and reduce risk for falls. Plan of Care Interventions Gait Training,Manual Therapy,Neuro Re-education, Patient/Caregiver Education,Therapeutic Activities, Therapeutic Exercise PT Services Indicated Yes Treatment Frequency and 2x/wk x 10 visits Duration These treatments will address the objective and functional deficits as defined above. The patient will be advanced safely and appropriately in order for the patient to progress towards his/her prior level of function. Additional exercises will be introduced and as well as a comprehensive home exercise program upon discharge, if needed, ?to ensure carryover of functional gains achieved in the clinic. This treatment plan has been reviewed and agreement upon by the patient.
--- NOTE | 2024-04-21 12:16 | OPREHPOC ---
Outpatient Therapy Plan of Care This is a Multidisciplinary Plan of Care that may contain components documented by all disciplines (PT, OT, and ST.) PT Problem 1 PT Problem #1 Knowledge Deficit PT Goal 1 Goal Pt will demo specific functional mobility HEPs indep Target Visit 10 Progress Met PT Problem 2 PT Problem #2 Impaired Flexibility PT Goal 1 Goal Pt will demo negative Johnny test for hip flexor tightness, negative tripod sign for hamstring tightness, 15 or less difference in 90-90 Hamstrings Test, WNL thoracolumbar rotation range Target Visit 10 Progress Partially Met Comment Progressing, significant rigidity continues PT Problem 3 PT Problem #3 Impaired Balance PT Goal 1 Goal Pt will demo a score of 42 or more in GARCIA BALANCE TEST, negative Rhomberg's test to reduce risk for falls. Target Visit 18 Progress Partially Met PT Goal 2 Goal 24 on Tinetti test to reduce fall risk Target Visit 18 PT Goal 1 Goal Improve cristiane hip flexion strength to 4+/5 to improve foot clearence Target Visit 18
--- NOTE | 2024-04-21 12:16 | PTOPPROG ---
Assessment and note entered by Miguel Dc, PT Evaluation Information Assessment Status Progress Diagnosis Weakness, gait abnormalities Onset approx 3 years ago Subjective Information Patient reports that at this point he feels therapy has really helped. He is a little more confident with gait but still feels off balance. Would like to continue therapy. Assessment PT Clinical Summary Patient showing progress with therapy at this time . Does demonstrate as fall risk with Tinetti assessment this date. Continues to show some weakness in cristiane hip flexors which can affect foot clearance with ADL performance. Will continue to benefit from skilled therapy to address deficits. Plan of Care Interventions Gait Training,Manual Therapy,Neuro Re-education, Patient/Caregiver Education,Therapeutic Activities, Therapeutic Exercise PT Services Indicated Yes Treatment Frequency and 1-2x/wk x 8 visits Duration These treatments will address the objective and functional deficits as defined above. The patient will be advanced safely and appropriately in order for the patient to progress towards his/her prior level of function. Additional exercises will be introduced and as well as a comprehensive home exercise program upon discharge, if needed, ?to ensure carryover of functional gains achieved in the clinic. This treatment plan has been reviewed and agreement upon by the patient.
--- NOTE | 2024-04-21 13:00 | PCPTNOTE ---
Patient progress note completed in conjunction with today's treatment visit.
--- NOTE | 2024-05-08 08:12 | PCPTNOTE ---
No call no show, reason unknown. AKMarcelo
== END 2024-06-03 23:59 | disposition home or self-care (01) ==
LOC: ANHPT 09:00
PROVIDERS: PCP Family Medicine; Visit Provider Family Medicine
DX: R53.1 Weakness (principal)
CPT/HCPCS: 97110; 97112; 97116; 97140; 97161; 97530

== ENCOUNTER 2024-06-26 08:34 | Outpatient (CLI) | payer MEDICARE, SELFPAY ==
--- NOTE | 2024-06-26 12:45 | NEURO_ITS ---
Clinical note: The patient is 74-year-old with history of paresthesias and weakness in both lower limbs for past 2 years. No history of diabetes mellitus. Order a brief neurological examination no focal weakness, muscle wasting or fasciculations were observed. Please refer to a detailed electrodiagnostic evaluation. Summary of findings: 1. Left tonight peroneal motor distal latency was moderately prolonged on the left side and normal on the right side with amplitudes were moderately decreased on the right and normal on left side. Conduction velocities were within normal range. There was no focal slowing across the fibular head. 2. Left and right tibial motor distal latency with normal was amplitudes were moderately decreased on the left and normal on the right side. Conduction velocity is mildly decreased on the left and normal on the right side. 3. Left and right medial plantar sensory distal latencies were moderately prolonged and amplitude was reported decreased on the right and essentially normal on the left side. 4. Left and I sural sensory distal latencies were within normal remains however amplitude was mildly decreased on the right and normal on the left side. 5. Left and right H-reflex latency is a morbidly prolonged and amplitude is significantly decreased on the left and normal on the right side. 6. EMG examination performed in both lower limbs and related paraspinal muscles and L3-S1 distribution which did not show any denervation changes. Motor unit amplitude, duration and recruitment pattern were within acceptable normal limits. 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 Clinical and etiologic correlation are recommended. This study did not show evidence for L3 to S1 radiculopathy however a negative evaluation would not rule out possibility of the same and hence clinical and if necessary radiographic correlation may be helpful. Ari Lorenzana MD,FAAN, FAANEM Neurology / Electrodiagnostic Medicine Nerve Conduction Studies Motor Nerve Results Latency Amplitude F-Lat Segment Distance CV Comment Site (ms) (mV) (ms) (cm) (m/s) Left Fibular (EDB) Motor Ankle 6.7 2.1 Bel Fib Head 14.5 1.95 Bel Fib Head-Ankle 350 45 Pop Fossa 16.0 1.79 Pop Fossa-Bel Fib Head 90 60 Right Fibular (EDB) Motor Ankle 4.4 1.31 Bel Fib Head 12.1 0.74 Bel Fib Head-Ankle 350 45 Pop Fossa 14.4 0.83 Pop Fossa-Bel Fib Head 90 39 Left Tibial (AHB) Motor Ankle 4.0 5.3 Knee 16.8 2.8 Knee-Ankle 490 38 Right Tibial (AHB) Motor Ankle 5.7 8.5 Knee 17.6 4.3 Knee-Ankle 490 41 Sensory Nerve Results Latency (Peak) Amplitude (P-P) Segment Distance CV Comment Site (ms) (?V) (cm) (m/s) Left Medial Plantar (Ortho) Sensory Great Toe-Med Mall 5.4 8 Great Toe-Med Mall 120 22 Right Medial Plantar (Ortho) Sensory Great Toe-Med Mall 5.7 4 Great Toe-Med Mall 120 21 Left Sural Sensory Calf-Lat Mall 3.8 12 Calf-Lat Mall 120 32 Right Sural Sensory Calf-Lat Mall 3.2 7 Calf-Lat Mall 120 38 H-Reflex Results M-Lat H Lat H Peak-Peak Amp M Peak-Peak Amp H-M Lat Site (ms) (ms) mV mV (ms) Left Tibial H-Reflex Pop Fossa 7.4 38.0 1.67 - 30.6 Right Tibial H-Reflex Pop Fossa 6.8 38.3 5.5 17.2 31.5 Electromyography Side Muscle Nerve Ins Act Fibs Psw Amp Dur Recrt Comment Right BicepsFemS Sciatic Nml Nml Nml Nml Nml Nml Right Semimembranosus Sciatic Nml Nml Nml Nml Nml Nml Right AntTibialis Dp Br Fibular Nml Nml Nml Nml Nml Nml Right Gastroc Tibial Nml Nml Nml Nml Nml Nml Right RectFemoris Femoral Nml Nml Nml Nml Nml Nml Left BicepsFemS Sciatic Nml Nml Nml Nml Nml Nml Left Semimembranosus Sciatic Nml Nml Nml Nml Nml Nml Left AntTibialis Dp Br Fibular Nml Nml Nml Nml Nml Nml Left Gastroc Tibial Nml Nml Nml Nml Nml Nml Left VastusMed Femoral Nml Nml Nml Nml Nml Nml Right L4 Parasp Rami Nml Nml Nml Nml Nml Nml Left L4 Parasp Rami Nml Nml Nml Nml Nml Nml Left L5 Parasp Rami Nml Nml Nml Nml Nml Nml Right L5 Parasp Rami Nml Nml Nml Nml Nml Nml MTDD
== END 2024-06-26 08:35 | disposition home or self-care (01) ==
LOC: ANHNEURO 08:36
PROVIDERS: PCP Family Medicine; Visit Provider Student in an Organized Health Care Education/Training Program
DX: G60.8 Other hereditary and idiopathic neuropathies (principal)
CPT/HCPCS: 95886; 95910

== ENCOUNTER 2024-07-12 04:19 | Emergency (ER) | payer MEDICARE, SELFPAY ==
[2024-07-12] VITALS (16 sets, daily range): BP systolic 127–152; BP diastolic 69–77; PULSE 70–89; RESP 13–26; TEMP 36.6–36.7; O2SAT 99–100
--- NOTE | ~2024-07-12 | CT_ITS ---
EXAMINATION: CT brain wo con DATE: 07/12/2024 05:04 INDICATION: Near syncope. TECHNIQUE: Computed tomography (CT) of the head was performed without intravenous contrast. The mA wa s adjusted according to patient size. Iterative reconstruction technique was employed. The dose-lengt h product was 681.00 mGy-cm. COMPARISON: Head CT 06/07/2020 FINDINGS: There are scattered areas of low attenuation in the cerebral white matter, which is within normal limits for the patient's age. There is no intracranial hemorrhage, acute infarction, or abnorm al intracranial mass lesion. The ventricles are normal in size. There are likely changes of ocular le ns replacement surgeries. There is mild mucosal thickening in the paranasal sinuses. The mastoid air cells are normal. IMPRESSION: 1. Normal aging brain. Reviewed, dictated and finalized at location A. IMPRESSION: 1. Normal aging brain.
--- NOTE | ~2024-07-12 | XR_ITS ---
EXAMINATION: XR chest 1V portable DATE: 07/12/2024 06:02 INDICATION: Weakness. TECHNIQUE: A single frontal view of the chest was obtained. COMPARISON: None. FINDINGS: A calcified right lung nodule and calcified right hilar and mediastinal lymph nodes are con sistent with old granulomatous disease. No pleural effusion or pneumothorax. The heart size is normal . IMPRESSION: 1. No acute cardiopulmonary disease. Reviewed, dictated and finalized at location A.
--- NOTE | 2024-07-12 04:30 | ECG_ITS ---
Test Date: 2024-07-12 04:36:42 Measurements Intervals [place] Rate: 75 P: 16 SC: 118 QRS: 47 QRSD: 106 T: 64 QT: 383 QTc: 429 Interpretive Statements SINUS RHYTHM WITH SHORT SC INTERVAL ABNORMAL ECG No previous ECG available for comparison Electronically Signed On 07-12-2024 13:14:06 CDT by Ruddy Myrick M.D.
[2024-07-12] MEDS: MECLIZINE HCL 25 MG TABLET PO (04:50)
[2024-07-12 05:01] LABS: Basophils Percent Auto 0.2 % (0.2-1.2); Hematocrit 38.7 % (42.0-52.0); Hemoglobin 13.6 g/dL (14.0-18.0); Immature Granulocyte Absolute 0.09 K/mm3 (0.00-0.031); Immature Granulocyte Percent A 0.5 % (0-0.5); Lymphocytes Absolute Auto 0.57 K/mm3 (0.9-3.2); Lymphocytes Percent Auto 3.4 % (18.3-44.2); Mean Corpuscular HGB Conc 35.1 g/dl (32-36); Mean Corpuscular Hemoglobin 32.5 pg (26-34); Mean Corpuscular Volume 92.6 fl (80-100); Mean Platelet Volume 8.9 fl (7.4-10.4); Monocytes Percent Auto 5.9 % (2.6-8.5); Platelet Count Result 164 k/mm3 (150-375); Red Blood Count 4.18 M/mm3 (4.6-6.20); Red Cell Distribution Width 12.6 % (11.5-14.5); White Blood Count 16.7 K/mm3 (4.5-10.0)
[2024-07-12 05:11] LABS: Lactic Acid Reflex 1.4 mmol/L (0.7-2.0)
[2024-07-12 05:12] LABS: Prothrombin Time 13.9 Seconds (11.1-14.7)
[2024-07-12 05:13] LABS: Alanine Aminotransferase 14 U/L (6-50); Albumin Level 4.5 g/dL (3.5-5.1); Alkaline Phosphatase 74 U/L (38-126); Anion Gap 11 mmol/L (4-12); Aspartate Amino Transferase 23 U/L (17-59); Bilirubin,Total 0.8 mg/dL (0.2-1.3); Blood Urea Nitrogen 24 mg/dL (9-20); Calcium 9.6 mg/dL (8.4-10.2); Carbon Dioxide 22 mmol/L (22-30); Chloride 104 mmol/L (98-107); Estimated CRCL calculation 46 ml/min; Estimated Glomerular Filt Rate 46; Glucose 118 mg/dL (65-110); Lipase 222 U/L (23-300); Magnesium 2.1 mg/dL (1.6-2.3); Partial Thromboplastin Time 29.8 Seconds (22.3-36.8); Potassium 4.2 mmol/L (3.4-5.0); Sodium 137 mmol/L (137-145)
[2024-07-12 05:22] LABS: Troponin I < 0.012 ng/mL (0.000-0.034)
--- NOTE | 2024-07-12 05:27 | ED.GENADULT ---
HPI - General Adult General Chief complaint: Dizziness Stated complaint: VERTIGO, UNSTEADY GAIT, RECTAL PAIN Time Seen by Provider: 07/12/24 04:24 History of Present Illness HPI narrative: Patient 74-year-old gentleman who presents emergency department with chief complaint of dizziness and constipation. Patient reports he has not had a bowel movement in several days reports that he tried a suppository without relief but reports that he has burning in his rectal area the patient reports that he also has dizziness and reports that it feels similar to when he has had vertigo before in the past. Related Data Home Medications Medication Instructions Recorded Confirmed tamsulosin 0.4 mg capsule 0.4 mg PO BID 08/27/19 12/28/22 meclizine 25 mg tablet 25 mg PO BID PRN 02/22/22 12/28/22 omega-3 fatty acids 1,000 mg 1,000 mg PO DAILY 02/19/24 capsule (Fish Oil Concentrate) Allergies Allergy/AdvReac Type Severity Reaction Status Date / Time propoxyphene Allergy Intermediate shock Verified 07/12/24 04:41 [From Darvocet-N] Sulfa (Sulfonamide Allergy Intermediate Rash Verified 07/12/24 04:41 Antibiotics) Gjormyb-VHJ-BfM Reductase AdvReac muscle Verified 07/12/24 04:41 Inhibitor aches Review of Systems Review of Systems: A 10 system review of systems was completed on the patient and is negative except for what is stated in the HPI. Nursing and ancillary documentation was reviewed. [facility] Past Medical History Medical History Allergies PERLA positive BPH (benign prostatic hyperplasia) Cataract (lens) fragments in eye following cataract surgery, bilateral Cervical spinal stenosis Chronic sinusitis CKD (chronic kidney disease) Essential (primary) hypertension Fungal infection of toenail Gout Hyperlipidemia Lower urinary tract symptoms (LUTS) Migraines Nail avulsion of toe Right foot pain Surgical History Surgical History History of ankle surgery Hx of sinus surgery Family History Family History Mother Diabetes mellitus Coronary artery disease Father Coronary artery disease Sibling Parkinson disease Sibling Parkinson disease Social History Social History Social History: Mr. Laboy lives in [place] with his Alaina. 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 He denies alcohol use, and other illicit substance use. He wishes to be a full code and he has designated his , Alaina Laboy, to be his surrogate decision maker. Smoking status: Never smoker Alcohol intake: never Substance use: never Substance use type: does not use Lack of Transportation: No Lack of Food: Never True Current Housing: I Have Housing Concerned About Future Housing: No Difficulty Paying Gas/Electric Bills: No Difficulty Paying for Meds: No Currently Unemployed: No Education: High School Diploma/GED Difficulty w/ Childcare or Family Care: No Living arrangements: with family Occupation/Education: other Gender identity (if verbalized by the patient): Male Spiritual care concerns: No Exam Narrative: GENERAL: Well-appearing, well-nourished, and in no acute distress. HEAD: Normocephalic, atraumatic. EYES: PERRLA and EOMI. ENT: Nares clear, no rhinorrhea or epistaxis. Mucous membranes moist. NECK: Supple. CHEST: Clear to auscultation. No respiratory distress. HEART: Regular rate and rhythm. No murmur heard. Normal peripheral pulses. ABDOMEN: Soft, nontender, nondistended, normal active bowel sounds. EXTREMITIES: Normal range of motion. No edema. : Rectal exam showed large amount of stool in the rectal vault. Manual disimpaction was performed by myself large amount of stool was evacuated from the rectal vault SKIN: Warm, dry, no rash. NEURO: No focal deficits. Alert and oriented x3. PSYCH: Normal mood and affect. Course Vital Signs Vital signs: Vital Signs Temperature 36.6 C 07/12/24 04:19 Pulse Rate 89 07/12/24 04:19 Respiratory Rate 17 07/12/24 04:19 Blood Pressure 152/77 H 07/12/24 04:19 Pulse Oximetry 100 07/12/24 04:19 Oxygen Delivery Room Air 07/12/24 04:19 Temperature 36.6 C 07/12/24 04:19 Pulse Rate 74 07/12/24 06:31 Respiratory Rate 18 07/12/24 06:31 Blood Pressure 140/69 07/12/24 06:30 Pulse Oximetry 100 07/12/24 06:31 Oxygen Delivery Room Air 07/12/24 04:19 Medical Decision Making [facility] Narrative Medical decision making narrative: Differential diagnosis includes vertigo, infection, constipation, fecal impaction Laboratory studies were obtained white count of 16.7 electrolytes showed a creatinine of 1.5 BUN of 24 COVID flu and RSV were negative CT head was negative chest x-ray showed no acute abnormality Patient is feeling much better after receiving Antivert and the patient is feeling better after with disimpaction. Vital Signs Vital Signs: Vital Signs Temperature 36.6 C 07/12/24 04:19 Pulse Rate 89 07/12/24 04:19 Respiratory Rate 17 07/12/24 04:19 Blood Pressure 152/77 H 07/12/24 04:19 Pulse Oximetry 100 07/12/24 04:19 Oxygen Delivery Room Air 07/12/24 04:19 Temperature 36.6 C 07/12/24 04:19 Pulse Rate 74 07/12/24 06:31 Respiratory Rate 18 07/12/24 06:31 Blood Pressure 140/69 07/12/24 06:30 Pulse Oximetry 100 07/12/24 06:31 Oxygen Delivery Room Air 07/12/24 04:19 Lab Data 07/12/24 04:52 07/12/24 04:51 Labs: Lab Results 07/12/24 07/12/24 Range/Units 04:51 04:52 WBC 16.7 H (4.5-10.0) K/mm3 RBC 4.18 L (4.6-6.20) M/mm3 Hgb 13.6 L (14.0-18.0) g/dL Hct 38.7 L (42.0-52.0) % MCV 92.6 (80-100) fl MCH 32.5 (26-34) pg MCHC 35.1 (32-36) g/dl RDW 12.6 (11.5-14.5) % Plt Count 164 (150-375) k/mm3 MPV 8.9 (7.4-10.4) fl Immature Gran % (Auto) 0.5 (0-0.5) % Neut % (Auto) 90.0 H (45.5-73.1) % Lymph % (Auto) 3.4 L (18.3-44.2) % [place] % (Auto) 5.9 (2.6-8.5) % Eos % (Auto) 0.0 (0-4.4) % Baso % (Auto) 0.2 (0.2-1.2) % Lymph # (Auto) 0.57 L (0.9-3.2) K/mm3 [place] # (Auto) 1.0 H (0.1-0.6) K/mm3 Eos # (Auto) 0.0 (0-0.3) K/mm3 Baso # (Auto) 0.0 (0.0-0.1) K/mm3 Abs Immat Gran (auto) 0.09 H (0.00-0.031) K/mm3 Absolute Neuts (auto) 15.0 H (1.3-6.7) K/mm3 Absolute Nucleated RBC 0.000 (0.0-0.012) K/mm3 Nucleated RBC % 0.0 (0.0-0.2) % PT 13.9 (11.1-14.7) Seconds INR 1.0 APTT 29.8 (22.3-36.8) Seconds Sodium 137 (137-145) mmol/L Potassium 4.2 (3.4-5.0) mmol/L Chloride 104 (98-107) mmol/L Carbon Dioxide 22 (22-30) mmol/L Anion Gap 11 (4-12) mmol/L BUN 24 H (9-20) mg/dL Creatinine 1.50 H (0.7-1.3) mg/dL Estim Creat Clear Calc 46 ml/min Estimated GFR 46 L (59 - ) Glucose 118 H (65-110) mg/dL Lactic Acid 1.4 (0.7-2.0) mmol/L Calcium 9.6 (8.4-10.2) mg/dL Magnesium 2.1 (1.6-2.3) mg/dL Total Bilirubin 0.8 (0.2-1.3) mg/dL AST 23 (17-59) U/L ALT 14 (6-50) U/L Alkaline Phosphatase 74 (38-126) U/L Troponin I < 0.012 (0.000-0.034) ng/mL Total Protein 7.0 (6.3-8.2) g/dL Albumin 4.5 (3.5-5.1) g/dL Lipase 222 (23-300) U/L Influenza A (RT-PCR) Negative (Negative) Influenza B (RT-PCR) Negative (Negative) RSV (RT-PCR) Negative (Negative) SARS-CoV-2 RNA (RT-PCR) Negative (Negative) Discharge Plan Discharge Clinical Impression: Acute constipation, Vertigo, Fecal impaction Patient Disposition: Home, Self-Care Condition: Stable Instructions: Antibiotic Form, Vertigo (ED), Dizziness (ED), Fecal Impaction (ED) Prescriptions: New meclizine 25 mg tablet 25 mg PO BID PRN (Reason: dizziness) Qty: 20 0RF polyethylene glycol 3350 [Miralax] 17 gram/dose powder 17 g PO BID PRN (Reason: constipation) 5 Days Qty: 170 0RF No Action tamsulosin 0.4 mg capsule 0.4 mg PO BID omega-3 fatty acids [Fish Oil Concentrate] 1,000 mg capsule 1,000 mg PO DAILY meclizine 25 mg tablet 25 mg PO BID PRN ezetimibe 10 mg tablet See Rx Instructions .ROUTE .COMPLEX Qty: 90 1RF Dose Instruction: Take 1 tablet by mouth once daily Rx Instructions: Take 1 tablet by mouth once daily amlodipine [Norvasc] 5 mg tablet 5 mg PO DAILY Qty: 90 1RF rizatriptan 10 mg tablet See Rx Instructions PO .COMPLEX Qty: 20 3RF Rx Instructions: take 1 tab at onset of headache; if no relief may repeat 1 tab after at least 2 hrs; max = 3 tabs/24 hr PO cholecalciferol (vitamin D3) 1,250 mcg (50,000 unit) capsule 1,250 mcg PO WEEKLY Qty: 14 1RF fluticasone propionate 50 mcg/actuation spray,suspension See Rx Instructions .ROUTE .COMPLEX Qty: 16 1RF Dose Instruction: Use 2 spray(s) in each nostril once daily Rx Instructions: Use 2 spray(s) in each nostril once daily allopurinol 100 mg tablet See Rx Instructions .ROUTE .COMPLEX Qty: 90 0RF Dose Instruction: TAKE 1 TABLET BY MOUTH ONCE DAILY (START AFTER YOU COMPLETE THE INDOMETHACIN) Rx Instructions: TAKE 1 TABLET BY MOUTH ONCE DAILY (START AFTER YOU COMPLETE THE INDOMETHACIN) carbidopa-levodopa [Sinemet] 25-100 mg tablet 1 tablet PO TID Qty: 90 3RF Rx Instructions: start with half tablet twice a day for 3 days and increase to half tablet 3 times a day for 3 days then 1 tablet 3 times a day to continue memantine 5-10 mg tablets,dose pack See Rx Instructions .ROUTE .COMPLEX Qty: 49 0RF Dose Instruction: USE DIRECTED Rx Instructions: USE DIRECTED memantine 10 mg tablet 10 mg PO BID Qty: 180 1RF Follow-up/Referrals: Mario Willett MD [Primary Care Provider] - Time of Disposition: 07:15
[2024-07-12 05:42] LABS: Influenza A QL RT-PCR Negative (Negative); Influenza B QL RT-PCR Negative (Negative); RSV RNA, RT-PCR Negative (Negative); SARS-CoV-2 RNA PCR Negative (Negative)
== END 2024-07-12 07:46 | disposition home or self-care (01) ==
PROVIDERS: Emergency Provider Emergency Medicine; PCP Family Medicine
DX: R42 Dizziness and giddiness (principal); K59.00 Constipation, unspecified; N18.9 Chronic kidney disease, unspecified; I12.9 Hypertensive chronic kidney disease with stage 1 through stage 4 chronic kidney disease, or unspecified chronic kidney disease; E78.5 Hyperlipidemia, unspecified; Z20.822 Contact with and (suspected) exposure to COVID-19
CPT/HCPCS: 36415; 70450; 71045; 80053; 83605; 83690; 83735; 84484; 85025; 85610; 85730; 87637; 93005; 99284; A9270

== ENCOUNTER 2024-07-24 10:18 | Outpatient (CLI) | payer MEDICARE, SELFPAY ==
--- NOTE | 2024-07-24 12:30 | NEURO_ITS ---
Clinical note: Patient is 74 years old with history of weakness in both upper limbs. Please refer to office notes for details of history and examination. on a brief examination no fasciculations or focal muscle wasting was noted in both upper limbs. Summary of findings: 1. Left right median motor distal latencies and amplitudes and conduction velocities were within normal limits. 2. Left and right ulnar motor distal latencies and amplitudes and conduction velocities were within normal limits. However conduction velocity across the elbow show [id number] slowing left more than right side. 3. Left and right median, ulnar and radial sensory distal latencies, amplitude and conduction velocity within acceptable normal limits. 4. EMG examination was performed using a monopolar needle electrode. Various muscles examined in both upper limbs. Mild to moderate decreased recruitment was noted in both triceps and a few muscles also in C8 distribution as shown below. Moderate decreased recruitment was seen in the right 1st dorsal interossei. 5. Temperature was maintained between 32.0-34.5'C with attention to fingers on both upper limbs throughout the testing. Impression: EMG and nerve conduction studies on both upper limbs show followin. 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 Moderate decreased recruitment was noted in the right 1st dorsal interossei. 2. This study raises possibility of chronic cervical radiculopathy likely at C7-T8 level on both sides right more than left side. Clinical and radiographic correlation should be considered. Remainder of the findings have considered within acceptable normal limits. Ari Lorenzana MD, FAAN, FAANEM Neurology and electrodiagnostic Medicine Nerve Conduction Studies Motor Nerve Results Latency Amplitude F-Lat Segment Distance CV Comment Site (ms) (mV) (ms) (cm) (m/s) Left Median (APB) Motor Wrist 4.4 4.7 Elbow 8.9 5.1 Elbow-Wrist 225 50 Right Median (APB) Motor Wrist 4.1 8.2 Elbow 8.1 8.3 Elbow-Wrist 235 59 Left Ulnar (ADM) Motor Wrist 3.4 7.8 Bel Elbow 7.3 6.9 Bel Elbow-Wrist 215 55 Abv Elbow 9.8 6.2 Abv Elbow-Bel Elbow 80 32 Right Ulnar (ADM) Motor Wrist 3.0 6.8 Bel Elbow 7.3 6.9 Bel Elbow-Wrist 235 55 Abv Elbow 9.3 6.6 Abv Elbow-Bel Elbow 80 40 Sensory Nerve Results Latency (Peak) Amplitude (P-P) Segment Distance CV Comment Site (ms) (?V) (cm) (m/s) Right Median DigIII Sensory Wrist-Dig III 3.5 28 Wrist-Dig III 150 43 Left Median-Ulnar Palmar Sensory Median Palm-Wrist 1.90 60 Palm-Wrist 80 42 Ulnar Palm-Wrist 2.1 28 Palm-Wrist 80 38 Right Median-Ulnar Palmar Sensory Median Palm-Wrist 2.1 51 Palm-Wrist 80 38 Ulnar Palm-Wrist 1.85 25 Palm-Wrist 80 43 Left Radial Sensory Forearm-Wrist 1.75 28 Forearm-Wrist 100 57 Right Radial Sensory Forearm-Wrist 1.83 38 Forearm-Wrist 100 55 Right Ulnar Sensory Wrist-Dig V 3.4 18 Wrist-Dig V 150 44 Electromyography Side Muscle Nerve Ins Act Fibs Psw Amp Dur Recrt Comment Right Deltoid Axillary Nml Nml Nml Nml Nml Nml Right Triceps Radial Nml Nml Nml Incr >12ms +2 Right Ext Digitorum Radial (Post Int) Nml Nml Nml Nml Nml Nml Right ExtCarUln Radial (Post Int) Nml Nml Nml Nml Nml Nml Right Ext Indicis Radial (Post Int) Nml Nml Nml Nml Nml Nml Right FlexPolLong Median (Ant Int) Nml Nml Nml Nml Nml Nml Right 1stDorInt Ulnar Nml Nml Nml Incr >12ms +2 Right Abd Poll Brev Median Nml Nml Nml Incr >12ms +2 Right FlexDigProf Ulnar Nml Nml Nml Incr >12ms +2 Right FlexCarRad Median Nml Nml Nml Nml Nml Nml Left Deltoid Axillary Nml Nml Nml Nml Nml Nml Left Triceps Radial Nml Nml Nml Incr >12ms +2 Left Ext Digitorum Radial (Post Int) Nml Nml Nml Nml Nml Nml Left ExtCarUln Radial (Post Int) Nml Nml 1+ Nml Nml Nml Left Ext Indicis Radial (Post Int) Nml Nml Nml Incr >12ms +2 Left FlexPolLong Median (Ant Int) Nml Nml Nml Nml Nml Nml Left 1stDorInt Ulnar Nml Nml Nml Nml Nml Nml Left Abd Poll Brev Median Nml Nml Nml Nml Nml Nml Left FlexDigProf Ulnar Nml Nml Nml Nml Nml Nml Left FlexCarRad Median Nml Nml Nml Nml Nml Nml Right BrachioRad Radial Nml Nml Nml Nml Nml Nml MTDD
== END 2024-07-24 10:19 | disposition home or self-care (01) ==
LOC: ANHNEURO 10:20
PROVIDERS: PCP Family Medicine; Visit Provider Student in an Organized Health Care Education/Training Program
DX: G43.109 Migraine with aura, not intractable, without status migrainosus (principal); R53.1 Weakness
CPT/HCPCS: 95886; 95911

== ENCOUNTER 2025-01-01 08:37 | Day surgery (SDC) | payer MEDICARE, SELFPAY ==
--- NOTE | 2024-12-18 11:33 | PC.NURSE ---
Reviewed pt's PMH with Dr. Schwartz who states okay for pt to have left cubital tunnel release surgery done at [facility].
--- NOTE | 2025-01-01 06:54 | WPDHPUPDATE1 ---
History and Physical Update Update Date/Time: 01/01/25 06:54 Patient seen and examined in pre-operative holding area. No interval change in medical history or symptoms. Patient recalls previous discussion of benefits and alternatives to procedure. Continues to desire to proceed with left cubital tunnel release. Reviewed procedure, post-op expectations and risks including but not limited to bleeding, infection, injury to tendon/nerve/vessel, decreased hand function, stiffness, RSD, no change or worsening of symptoms. I discussed the possible use of assistants and their participation in the case. Patient stated understanding and signed the consent form wishing to proceed.
--- NOTE | 2025-01-01 06:54 | W.PM.PROC2 ---
Procedure Note - Detailed Date of Procedure 01/01/25 Pre-op Diagnosis left Cubital Tunnel Syndrome Post-op Diagnosis Same Procedure Performed left CuTR Surgeon Kannan Lopez MD [employer] Person jefferson caban pa-c Anesthesia MAC Description of Procedure INFORMED CONSENT:The patient was seen and examined and marked in the pre-op area.? The patient signed the consent form. PROCEDURE IN DETAIL: The patient taken back to OR on the stretcher in supine position. Time out performed with anesthesia, surgeon and staff agreeing on patient's name site and surgery to be performed SCDs were placed on the lower extremities and inflated A tourniquet was placed on {left} upper extremity and antibiotics given IV After anesthesia administered sedation I injected {8}cc 1%lido with epi and 0.5% marcaine plain at the operative site The?{left upper extremity}?was prepped and draped in sterile fashion the??{left upper extremity} was??exsanguinated with Esmarch bandage and tourniquet inflated to 250mmHg I next proceeded with making a longitudinal incision between two heads for flexor carpi ulnaris at end of {left} cubital tunnel with 15 blade scalpel.? Littler scissors were used to spread down to FCU fascia.? An incision was made in FCU fascia and ulnar nerve identified exiting cubital tunnel.? I proceeded with complete retrograde release of the cubital tunnel including 7cm proximal for the intermuscular septum.? The nerve appeared healthy with visible vaso nervorum.? There was no subluxation on full elbow range of motion. ? I irrigated with normal saline and closure with 4-0 monocryl for dermis and subcuticular. The incision was covered with Dermabond then 4x4s, marcus, and a posterior elbow splint for patient safety, security and comfort and secured with viv bandages after the tourniquet was let down noting the hand was warm and well perfused.? Patient awaken from anesthesia and transferred to recovery in stable condition Complications - none EBL- 1cc Disposition - home in stable condition Jefferson Caban PA-C was essential for positioning, retraction, closure and dressing placement [facility] Billing Surgery - Charge Forward: Surgery Billing ([id number] same for jefferson adding modifier )
[2025-01-01 10:11] VITALS: BMI 23.8
[2025-01-01 10:12] VITALS: BP 124/70; PULSE 67; RESP 18; TEMP 36.6; O2SAT 100
--- OUTSIDE RECORDS SUMMARY | 2025-01-01 10:31 | XMS_ITS | Referral Summary ---
Author Organization [facility] Building B Address [address] [place] [address] Care Team Providers Care Manager General Name Role Phone Jacinto Leon MD Primary Care Provider [phone] Allergies Active Allergy Reactions Criticality Noted Date Comments Acetaminophen Propoxyphene Sulfa (Sulfonamide Antibiotics) Medications lisinopril (PRINIVIL,ZESTR IL) 10 mg tablet take 1 tablet by oral route every day 0 0 7 Active tamsulosin (FLOMAX) 0.4 mg capsule,extende d release 24hr take 1 capsule by oral route every day 1/2 hour following the same meal each day 0 0 6 Active dilTIAZem XR (dilTIAZem CD) 180 mg 24 hr capsule Take 180 mg by mouth daily. Active fluticasone (FLONASE) 50 mcg/actuation nasal spray Administer 1 spray into each nostril daily. Active ezetimibe (ZETIA) 10 mg tablet Take 10 mg by mouth daily Active amitriptyline (ELAVIL) 25 mg tabletIndicatio ns:Migraine Prevention Take 25 mg nightly 90 tablet 3 1 Active Active Problems Problem Noted Date Diagnosed Date Subjective weakness 07/16/2017 Assessment & Plan (03/23/2021 1:59 PM CDT): Continues to have normal exam but he notes change from 5-10 years ago that currently seems consistent with age related changes. His sisters have both been diagnosed with PD in last year, but I reassured him I so no evidence of that at this time, although happy to continue to re-evaluate yearly for change and call if issue/concern/change in interim Assessment & Plan (01/19/2020 3:15 PM CDT): Continued very gradual decline, nothing limiting just 'not what I'd like . Prior work-up has been unrevealing. Call if prominent change/concern, but certainly possible this is just age related decline given mild, gradual nature. Assessment & Plan (01/21/2019 3:10 PM CDT): Subjectively has more difficulty with things than when younger but still very strong and everyone tells me I'm doing much better than most 67 year olds without any clear weakness on exam. Acknowledges I may just be getting old. Nothing further to do at this time as past work-up unrevealing and no significant change in symptoms. Encouraged continued physical activity as tolerated and to call if any changes/concerns in future. Assessment & Plan (07/16/2017 4:14 PM CDT): Continues to report joint pains and feeling that he has lost his strength, although remains strong on formal examination. TSH, ESR, CK all normal on past checks. Unclear that primary neurologic process would be causing this, question contribution from arthritis/age as he has not had apparent change in muscle bulk/weight or confrontational strength. Back pain 05/10/2016 Overview (12/23/2016): Back pain, unspecified back location, unspecified back pain laterality, unspecified chronicity Neck pain 05/10/2016 Overview (12/23/2016): Neck pain Headache disorder 05/10/2016 Overview (12/23/2016): Chronic daily headache Assessment & Plan (03/23/2021 1:59 PM CDT): Continues to have headaches primarily related to heat/allergies Has done better with 50 mg amitriptyline dose during streeter and tolerates decrease to 25 mg over cooler months, which I recommended he continue He takes tylenol PRN, infrequently Encouraged continued hydration and limiting activity in heat He is happy with that plan and will call if change/issue Can RTC in 1 year or sooner if needed Assessment & Plan (01/19/2020 3:13 PM CDT): Remains happy with amitriptyline 25 mg for his chronic daily headache. Tried weaning to 1/2 tab in August with recurrence of headaches, so returned to this dose with adequate control. No issues/concerns otherwise. Encouraged hydration, sleep Assessment & Plan (01/21/2019 3:09 PM CDT): Has one mild headache every few months, but otherwise very happy on amitriptyline 25 mg. Aware of sedation/dizziness/confusion risk with this medication given his age. Given that he has done so well, would be reasonable to wean medication to 1/2 tab daily and see how he does. 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 He will call and Inform me when he starts and how he is feeling after one week on 1/2 dose to decide if he wants to continue at low dose or return to full dose. Otherwise he can return in 1 year for refills or as needed if change Assessment & Plan (07/16/2017 4:12 PM CDT): Headaches are significantly improved. Diltiazem was started by PCP, which he thinks may have helped. Also thinks weather cooling off and working less have been helpful. 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 He wonders what plan for his medication would be. I suggested continuing for at least 6 months of headache control, and suggested continuing until weather heats up again to see if there is any recurrence of headaches at that time. Will plan on having him return around February/March next year for re-evaluation unless change/new concern. 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 Gender Identity Not on file Sexual Orientation Not on file Last Filed Vital Signs Vital Sign Reading Time Taken Comments Blood Pressure 116/68 03/23/2021 1:29 PM CDT Pulse 76 03/23/2021 1:29 PM CDT Temperature - - Respiratory Rate 18 03/23/2021 1:29 PM CDT Oxygen Saturation - - Inhaled Oxygen Concentration - - Weight 90.7 kg (200 lb) 03/23/2021 1:29 PM CDT Height 188 cm (6' 2 ) 03/23/2021 1:29 PM CDT Body Mass Index 25.68 03/23/2021 1:29 PM CDT Plan of Treatment Not on file Insurance MEDICARE [facility] Care Teams Manager General Relationship Specialty Start Date End Date Jacinto Leon MD [address]NAL MEDICINE [place], [place] [id number] PCP - General 05/10/16
--- OUTSIDE RECORDS SUMMARY | 2025-01-01 10:31 | XMS_ITS | Clinical Summary ---
Author Organization [facility] Building B Address [address] [place] [address] Care Team Providers Care Respiratory Services Manager Name Role Phone Jacinto Leon MD Primary Care Provider [phone] Allergies Active Allergy Reactions Criticality Noted Date [...] how he does. 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 [...] 1 Overview (12/23/2016): Analgesic overuse headache ^ Surgical History Surgery Date Site/Laterality Comments OTHER SURGICAL HISTORY Septoplasty, sinus surgery OTHER SURGICAL HISTORY Rt bone spur on ankle OTHER SURGICAL HISTORY amp finger tip middle finger left hand Medical History Medical History Date Comments Headache Headache Dizziness Dizziness Hypertension Hypertension Social History Tobacco Use Types Packs/Day Years Used Date Smoking Tobacco: Never Smokeless Tobacco: Never Alcohol Use Standard Drinks/Week Comments No 0 (1 standard drink = 0.6 oz pur e alcohol) Sex and Gender Information Value Date Recorded Sex Assigned at Not on file 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
--- NOTE | 2025-01-01 11:20 | P.PNAN_ITS ---
Anes - Initial Pre Proc Eval Procedure: Operation Date: 01/01/25 11:30 Proposed Procedures p Left Cubital Tunnel Release - Kannan Lopez MD Date/Time: 01/01/25 11:20 Surgeon: Kannan Lopez MD Pre Op Diagnosis: Bilateral Cubital Tunnel Syndrome Patient Data Age: 74 Gender: M Height: 1.85 m Weight: 81.8 kg Last Vital Signs Temp 36.6 C 01/01/25 10:12 Pulse 67 01/01/25 10:12 Resp 18 01/01/25 10:12 BP 124/70 01/01/25 10:12 Pulse Ox 100 01/01/25 10:12 O2 Del Method Room Air 01/01/25 10:12 Allergies Allergy/AdvReac Type Severity Reaction Status Date / Time propoxyphene (From Allergy Intermediate shock Verified 01/01/25 10:07 Darvocet-N) Sulfa (Sulfonamide Allergy Intermediate Rash Verified 01/01/25 10:07 Antibiotics) [id number] Reductase AdvReac muscle Verified 01/01/25 10:07 Inhibitor aches Home Medications ?Medication ?Instructions ?Recorded ?Confirmed ?Type tamsulosin 0.4 mg capsule 0.4 mg PO BID 08/27/19 01/01/25 History omega-3 fatty acids 1,000 mg 1,000 mg PO DAILY 02/19/24 01/01/25 History capsule (Fish Oil Concentrate) rizatriptan 10 mg tablet See Rx Instructions PO .COMPLEX 04/10/24 01/01/25 Rx #20 tabs meclizine 25 mg tablet 25 mg PO BID PRN dizziness #20 tabs 07/12/24 01/01/25 Rx polyethylene glycol 3350 17 17 g PO BID PRN constipation 5 07/12/24 01/01/25 Rx gram/dose oral powder (Miralax) days #170 grams amitriptyline 25 mg tablet 25 mg PO QHS #90 tabs 08/12/24 01/01/25 Rx ezetimibe 10 mg tablet See Rx Instructions .Route 08/18/24 01/01/25 Rx .COMPLEX #90 tabs amlodipine 5 mg tablet See Rx Instructions .Route 08/28/24 01/01/25 Rx .COMPLEX #90 tabs cholecalciferol (vitamin D3) 1,250 1,250 mcg PO WEEKLY #14 caps 11/07/24 01/01/25 Rx mcg (50,000 unit) capsule allopurinol 100 mg tablet See Rx Instructions .Route 11/24/24 01/01/25 Rx .COMPLEX #90 tabs carbidopa 25 mg-levodopa 100 mg 1 tablet PO TID #90 tabs 11/25/24 01/01/25 Rx tablet (Sinemet) amlodipine 2.5 mg tablet 2.5 mg PO DAILY #90 tabs 12/02/24 01/01/25 Rx mecobalamin (vitamin B12) 1,000 1,000 mcg PO DAILY 12/02/24 01/01/25 History mcg chewable tablet fluticasone propionate 50 See Rx Instructions .Route 12/08/24 01/01/25 Rx mcg/actuation nasal .COMPLEX #16 grams spray,suspension tramadol 50 mg tablet 50 mg PO Q6H PRN pain #12 tabs 01/01/25 Rx Patient hx anesthesia problems: none Family hx anesthesia problems: none Results Review: All pre-operative results and documents have been reviewed as part of the pre- operative evaluation. 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 MCI (mild cognitive impairment) Parkinsons disease Lower back pain Cervical radiculopathy 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 Peripheral neuropathy PERLA positive Nail avulsion of toe Cataract (lens) fragments in eye following cataract surgery, bilateral BPH (benign prostatic hyperplasia) CKD (chronic kidney disease) Cervical spinal stenosis Allergies Migraines Lower urinary tract symptoms (LUTS) Gout Fungal infection of toenail Hyperlipidemia Right foot pain Chronic sinusitis Essential (primary) hypertension Surgical History Surgical History Hx of sinus surgery History of ankle surgery Family History Family History Mother Diabetes mellitus Coronary artery disease Father Coronary artery disease Sibling Parkinson disease Sibling Parkinson disease Social History Social History Social History: Mr. Laboy lives in [place] with his Alaina. 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 He is a lifelong non-smoker. He denies alcohol use, and other illicit substance use. He wishes to be a full code and he has designated his , Alaina Laboy, to be his surrogate decision maker. Smoking status: Never smoker Alcohol intake: never Substance use: never Substance use type: does not use Lack of Transportation: No Lack of Food: Never True Current Housing: I Have Housing Concerned About Future Housing: No Difficulty Paying Gas/Electric Bills: No Difficulty Paying for Meds: No Currently Unemployed: No Education: High School Diploma/GED Difficulty w/ Childcare or Family Care: No Living arrangements: with family Occupation/Education: other Gender identity (if verbalized by the patient): Male Spiritual care concerns: No Anes - Eval Final PreProcedure Day of Procedure 01/01/25 11:20 Patient weight: normal Heart: regular rate and rhythm Lungs: clear to auscultation Airway: Mallampati scale class II Neurological: alert and oriented Last oral intake: >/= 8 hours ASA classification: III Emergent: no Anesthetic plan: proceed Anesthesia type and monitoring: general GIVS and standard monitoring Results Review: All pre-operative results and documents have been reviewed as part of the pre- operative evaluation. Informed Consent: The patient's anesthetic plan and its attendant risks and benefits were discussed with the patient/family/POA. Questions were solicited and answers provided to the satisfaction of the patient/family/POA.
[2025-01-01] MEDS: LACTATED RINGERS 1,000 ML 30 ML IV CONT (11:22)
[2025-01-01] MEDS: ceFAZolin SODIUM 2 GM/20 ML SW SYRINGE IV PUSH (11:28)
[2025-01-01] MEDS: LIDOCAINE 1% LOCAL INJ 20 ML VIAL 5 ML INFILTRATE (11:33)
[2025-01-01] MEDS: LIDO 1%/EPINEPHRINE 1:100,000 10 ML VIAL 5 ML INFILTRATE (11:33)
[2025-01-01 11:53] VITALS: BP 141/61; PULSE 65; RESP 12; O2SAT 99
--- NOTE | 2025-01-01 12:09 | WPDANESPN ---
Anes - Prog Note Post-Op Date/Time: 01/01/25 12:09 Cardiovascular status: normal Respiratory status: normal Airway patency: baseline Mental status: baseline Post-Op hydration status: normal Vital Signs: Last Vital Signs Temp 36.6 C 01/01/25 10:12 Pulse 65 01/01/25 11:53 Resp 12 01/01/25 11:53 BP 141/61 H 01/01/25 11:53 Pulse Ox 99 01/01/25 11:53 O2 Del Method Room Air 01/01/25 11:53 Pain Score (VAS): 0 Patient Feedback: Patient satisfied with anesthetic care.
[2025-01-01 12:20] VITALS: BP 142/66; PULSE 77; RESP 16; O2SAT 97
== END 2025-01-01 12:45 | disposition home or self-care (01) ==
PROVIDERS: PCP Family Medicine; Visit Provider Plastic Surgery
PROC: (CPT 64718; principal; 2025-01-01 11:30)
DX: G56.22 Lesion of ulnar nerve, left upper limb (principal)
CPT/HCPCS: 64718

== ENCOUNTER 2025-02-12 06:45 | Day surgery (SDC) | payer MEDICARE, SELFPAY ==
[2025-01-23 10:26] VITALS: BMI 24.8
--- NOTE | 2025-02-12 06:42 | WPDHPUPDATE1 ---
History and Physical Update Update Date/Time: 02/12/25 06:42 Patient seen and examined in pre-operative holding area. No interval change in medical history or symptoms. Patient recalls previous discussion of benefits and alternatives to procedure. Continues to desire to proceed with right cubital tunnel release. Reviewed procedure, post-op expectations and risks including but not limited to bleeding, infection, injury to tendon/nerve/vessel, decreased hand function, stiffness, RSD, no change or worsening of symptoms. I discussed the possible use of assistants and their participation in the case. Patient stated understanding and signed the consent form wishing to proceed.
--- NOTE | 2025-02-12 06:42 | W.PM.PROC2 ---
Procedure Note - Detailed Date of Procedure 02/12/25 Pre-op Diagnosis right Cubital Tunnel Release Post-op Diagnosis Same Procedure Performed right CuTR Surgeon Kannan Lopez MD [facility] jefferson caban pa-c Anesthesia MAC Description of Procedure INFORMED CONSENT:The patient was seen and examined and marked in the pre-op area.? The patient signed the consent form. PROCEDURE IN DETAIL: The patient taken back to OR on the stretcher in supine position. Time out performed with anesthesia, surgeon and staff agreeing on patient's name site and surgery to be performed SCDs were placed on the lower extremities and inflated A tourniquet was placed on {right upper extremity and antibiotics given IV After anesthesia administered sedation I injected {7}cc 1%lido with epi and 0.5% marcaine plain at the operative site The?{right upper extremity}?was prepped and draped in sterile fashion the??{right upper extremity} was??exsanguinated with Esmarch bandage and tourniquet inflated to 250mmHg I next proceeded with making a longitudinal incision between two heads for flexor carpi ulnaris at end of {right} cubital tunnel with 15 blade scalpel.? Littler scissors were used to spread down to FCU fascia.? An incision was made in FCU fascia and ulnar nerve identified exiting cubital tunnel.? I proceeded with complete retrograde release of the cubital tunnel including 7cm proximal for the intermuscular septum.? The nerve appeared healthy with visible vaso nervorum.? There was no subluxation on full elbow range of motion. ? I irrigated with normal saline and closure with 4-0 monocryl for dermis and subcuticular. The incision was covered with Dermabond then 4x4s, marcus, and a posterior elbow splint for patient safety, security and comfort and secured with viv bandages after the tourniquet was let down noting the hand was warm and well perfused.? Patient awaken from anesthesia and transferred to recovery in stable condition Complications - none EBL- 1cc Disposition - home in stable condition Jefferson Caban PA-C was essential for positioinng, retraction, closure and dressing placement [facility] Billing Surgery - Charge Forward: Surgery Billing ([id number] for jefferson)
--- OUTSIDE RECORDS SUMMARY | 2025-02-12 07:11 | XMS_ITS | Clinical Summary ---
Author Organization [facility] Building B Address [address] [place] [address] Care Team Providers Care Manager Eligibility Name Role Phone Jacinto Leon MD Primary Care Provider [phone] Allergies Active Allergy Reactions Criticality Noted Date [...] how he does. 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 Gender Identity Not on file Sexual Orientation [...] 03/23/2021 1:29 PM CDT Plan of Treatment Health Maintenance Due Date Last Done Comments Colon Cancer Screening-Colonoscopy 1950 Depression Screening 1950 Fall Risk Assessment 1950 Hepatitis C Screening 1950 DTaP/Tdap/Td Vaccine (1 - Tdap) 1962 Hepatitis B Screening 1969 Pneumococcal vaccine 65+ (1 of 1 - PCV) 2001 Zoster Vaccine (2 of 3) 12/12/2013 10/17/2013 Abdominal Aortic Aneurysm (A AA) Screen 2016 Well Visit 65+ 2016 Influenza Vaccine (Season Ended) 2025 10/27/2019, 09/12/2013, 09/27/2012 Insurance MEDICARE [employer] Care Teams Manager Eligibility Relationship Specialty Start Date End Date Jacinto Leon MD [address] [place] [address] PCP - General 05/10/16
--- OUTSIDE RECORDS SUMMARY | 2025-02-12 07:11 | XMS_ITS | Referral Summary ---
Author Organization [facility] Building B Address [address] [place] [address] Care Team Providers Care Line Assigner Name Role Phone Jacinto Leon MD Primary Care Provider [phone] Allergies Active Allergy Reactions Criticality Noted Date [...] how he does. 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
[2025-02-12 07:20] VITALS: BP 139/78; PULSE 68; RESP 20; TEMP 36.4; O2SAT 100
[2025-02-12] MEDS: LACTATED RINGERS 1,000 ML 30 ML IV CONT (07:30)
--- NOTE | 2025-02-12 07:51 | P.PNAN_ITS ---
Anes - Initial Pre Proc Eval Procedure: Operation Date: 02/12/25 08:45 Proposed Procedures p Right Cubital Tunnel Release - Kannan Lopez MD Date/Time: 02/12/25 07:51 Surgeon: Kannan Lopez MD Pre Op Diagnosis: Bilateral Cubital Tunnel Release Patient Data Age: 74 Gender: M Height: 1.85 m Weight: 81.7 kg Last Vital Signs Temp 36.4 C 02/12/25 07:20 Pulse 68 02/12/25 07:20 Resp 20 02/12/25 07:20 BP 139/78 02/12/25 07:20 Pulse Ox 100 02/12/25 07:20 O2 Del Method Room Air 02/12/25 07:20 Allergies Allergy/AdvReac Type Severity Reaction Status Date / Time propoxyphene (From Allergy Intermediate shock Verified 01/23/25 10:27 Darvocet-N) Sulfa (Sulfonamide Allergy Intermediate Rash Verified 01/23/25 10:27 Antibiotics) [id number] Reductase AdvReac muscle Verified 01/23/25 10:27 Inhibitor aches Home Medications ?Medication ?Instructions ?Recorded ?Confirmed ?Type tamsulosin 0.4 mg capsule 0.4 mg PO BID 08/27/19 01/23/25 History omega-3 fatty acids 1,000 mg 1,000 mg PO DAILY 02/19/24 01/23/25 History capsule (Fish Oil Concentrate) rizatriptan 10 mg tablet See Rx Instructions PO .COMPLEX 04/10/24 01/23/25 Rx #20 tabs meclizine 25 mg tablet 25 mg PO BID PRN dizziness #20 tabs 07/12/24 01/23/25 Rx amitriptyline 25 mg tablet 25 mg PO QHS #90 tabs 08/12/24 01/23/25 Rx ezetimibe 10 mg tablet See Rx Instructions .Route 08/18/24 01/23/25 Rx .COMPLEX #90 tabs cholecalciferol (vitamin D3) 1,250 1,250 mcg PO WEEKLY #14 caps 11/07/24 01/23/25 Rx mcg (50,000 unit) capsule allopurinol 100 mg tablet See Rx Instructions .Route 11/24/24 01/23/25 Rx .COMPLEX #90 tabs carbidopa 25 mg-levodopa 100 mg 1 tablet PO TID #90 tabs 11/25/24 01/23/25 Rx tablet (Sinemet) mecobalamin (vitamin B12) 1,000 1,000 mcg PO DAILY 12/02/24 01/23/25 History mcg chewable tablet fluticasone propionate 50 See Rx Instructions .Route 12/08/24 01/23/25 Rx mcg/actuation nasal .COMPLEX #16 grams spray,suspension amlodipine 5 mg tablet See Rx Instructions .Route 01/08/25 01/23/25 Rx .COMPLEX #90 tabs Patient hx anesthesia problems: none Family hx anesthesia problems: none Results Review: All pre-operative results and documents have been reviewed as part of the pre- operative evaluation. 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 MCI (mild cognitive impairment) Parkinsons disease Lower back pain Cervical radiculopathy 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 Peripheral neuropathy PERLA positive Nail avulsion of toe Cataract (lens) fragments in eye following cataract surgery, bilateral BPH (benign prostatic hyperplasia) CKD (chronic kidney disease) Cervical spinal stenosis Allergies Migraines Lower urinary tract symptoms (LUTS) Gout Fungal infection of toenail Hyperlipidemia Right foot pain Chronic sinusitis Essential (primary) hypertension Surgical History Surgical History Hx of sinus surgery History of ankle surgery Family History Family History Mother Diabetes mellitus Coronary artery disease Father Coronary artery disease Sibling Parkinson disease Sibling Parkinson disease Social History Social History Social History: Mr. Laboy lives in [place] with his Alaina. 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 He is a lifelong non-smoker. He denies alcohol use, and other illicit substance use. He wishes to be a full code and he has designated his , Alaina Laboy, to be his surrogate decision maker. Smoking status: Never smoker Second hand tobacco smoke exposure: Yes Alcohol intake: never Substance use: never Substance use type: does not use Lack of Transportation: No Lack of Food: Never True Current Housing: I Have Housing Concerned About Future Housing: No Difficulty Paying Gas/Electric Bills: No Difficulty Paying for Meds: No Currently Unemployed: No Education: High School Diploma/GED Difficulty w/ Childcare or Family Care: No Living arrangements: with family Occupation/Education: other Gender identity (if verbalized by the patient): Male Spiritual care concerns: No Anes - Eval Final PreProcedure Day of Procedure 02/12/25 07:51 Patient weight: normal Heart: regular rate and rhythm Lungs: clear to auscultation and normal air movement Airway: Mallampati scale class II Neurological: alert and oriented Last oral intake: >/= 8 hours ASA classification: III Emergent: no Anesthetic plan: proceed Anesthesia type and monitoring: general GIVS and standard monitoring Results Review: All pre-operative results and documents have been reviewed as part of the pre- operative evaluation. Informed Consent: The patient's anesthetic plan and its attendant risks and benefits were discussed with the patient/family/POA. Questions were solicited and answers provided to the satisfaction of the patient/family/POA.
[2025-02-12] MEDS: ceFAZolin SODIUM 2 GM/20 ML SW SYRINGE IV PUSH (08:34)
[2025-02-12] MEDS: BUPIVACAINE/EPINEPHRINE 0.5% 10 ML VIAL 5 ML INFILTRATE (08:45)
[2025-02-12] MEDS: LIDOCAINE 1% LOCAL INJ 20 ML VIAL 5 ML INFILTRATE (08:46)
[2025-02-12 09:00] VITALS: BP 97/55; PULSE 62; RESP 15; O2SAT 98
[2025-02-12 09:10] VITALS: BP 110/56; PULSE 60; RESP 15; O2SAT 99
[2025-02-12 09:20] VITALS: BP 119/62; PULSE 61; RESP 18; O2SAT 100
--- NOTE | 2025-02-12 11:43 | WPDANESPN ---
Anes - Prog Note Post-Op Date/Time: 02/12/25 11:43 Cardiovascular status: normal Respiratory status: normal Airway patency: baseline Mental status: baseline Post-Op hydration status: normal Vital Signs: Last Vital Signs Temp 36.4 C 02/12/25 07:20 Pulse 61 02/12/25 09:20 Resp 18 02/12/25 09:20 BP 119/62 02/12/25 09:20 Pulse Ox 100 02/12/25 09:20 O2 Del Method Room Air 02/12/25 09:20 Pain Score (VAS): 0 I/O: Intake & Output 02/11/25 02/12/25 02/12/25 23:59 07:59 15:59 Intake Total 650 Balance 650 Post-procedural complaints: none Patient Feedback: Patient satisfied with anesthetic care. Other Findings: Patient vital signs back to baseline. Patient denies nausea and vomiting. Patient's pain under control. Patient OK for discharge.
== END 2025-02-12 09:38 | disposition home or self-care (01) ==
PROVIDERS: PCP Family Medicine; Visit Provider Plastic Surgery
PROC: (CPT 64718; principal; 2025-02-12 08:45)
DX: G56.21 Lesion of ulnar nerve, right upper limb (principal)
CPT/HCPCS: 64718

== ENCOUNTER 2025-05-01 10:18 | Emergency (ER) | payer MEDICARE, SELFPAY ==
--- NOTE | ~2025-05-01 | XR_ITS ---
EXAMINATION: XR chest 1V portable 05/01/2025 11:41 INDICATION: Hypotension. Back pain. PROCEDURE: AP portable chest COMPARISON: No prior studies for comparison. FINDINGS: The lungs are clear. The cardiomediastinal silhouette is within normal limits. There are no pleural effusions. There is no pneumothorax suspected. IMPRESSION: 1: NO ACUTE CARDIOPULMONARY DISEASE. Reviewed, dictated and finalized at location A.
--- OUTSIDE RECORDS SUMMARY | 2025-05-01 10:22 | XMS_ITS | Clinical Summary ---
Author Organization [facility] Building [address] Address [address] [place] [address] Care Team Providers Care Emergency Vehicle Technician Name Role Phone Jacinto Leon MD Primary Care Provider [phone] Allergies Active Allergy Reactions Criticality Noted Date Comments Acetaminophen Propoxyphene Sulfa (Sulfonamide Antibiotics) Medications tamsulosin (FLOMAX) 0.4 mg capsule,extend ed release 24hr take 1 capsule by oral [...] Take 10 mg by mouth daily Active allopurinoL (ZYLOPRIM) 100 mg tablet TAKE 1 TABLET BY MOUTH ONCE DAILY START AFTER COMPLETING INDOMETHACIN 5 Active cholecalcifero l (VITAMIN D-3) 50,000 unit capsule Take 1 capsule (50,000 Units total) by mouth once a week 5 Active memantine (NAMENDA) 10 mg tablet Take 1 tablet (10 mg total) by mouth 2 (two) times a day 5 Active amLODIPine (NORVASC) 5 mg tablet Take 1 tablet (5 mg total) by mouth daily 5 Active cyanocobalamin (Vitamin B-12) 2,500 mcg tablet, sublingualIndi cations:Preven tion of Vitamin B12 Deficiency Active meclizine (ANTIVERT) 25 mg tablet Take 1 tablet (25 mg total) by mouth 3 (three) times a day as needed for dizziness Active carbidopa-levo dopa (SINEMET) 25-100 mg per tabletIndicati ons:Parkinsoni sm Take 1.5 tablets by mouth 3 (three) times a day 450 tablet 3 5 Active amitriptyline (ELAVIL) 10 mg tabletIndicati ons:Migraine Prevention Take 10 mg daily 90 tablet 3 5 Active rimegepant (NURTEC ODT) tablet,disinte grating Take 1 tablet (75 mg total) by mouth daily as needed (migraine) 8 tablet 5 5 Active lisinopril (PRINIVIL,ZEST RIL) 10 mg tablet take 1 tablet by oral route every day 0 0 7 025 Discontin ued(Thera py completed ) amitriptyline (ELAVIL) 25 mg tabletIndicati ons:Migraine Prevention Take 25 mg nightly 90 tablet 3 1 025 Discontin ued(Reord er) carbidopa-levo dopa (SINEMET) 25-100 mg per tablet START WITH 1 TABLET AT BEDTIME FOR 1 WEEK, THEN 1 TABLET TWICE DAILY FOR 1 WEEK, THEN 1 TABLET 3 TIMES DAILY 5 025 Discontin ued(Reord er) Active Problems Problem Noted Date Diagnosed Date Parkinson's disease without dyskinesia, with fluctuating manifestations 04/06/2025 Assessment & Plan (04/06/2025 5:14 PM CDT): Parkinson's disease Mild Parkinson's with tremor, slowness, stiffness. Symptoms not well controlled. Depression and cognitive impairment may be related. - Increase carbidopa/levodopa to 1.5 tablets three times daily. - Instruct to take carbidopa/levodopa 30 minutes before or 1 hour after meals. - Send new prescription for carbidopa/levodopa to pharmacy. - Continue physical therapy for balance and strength. - Monitor symptoms and keep a diary of facial numbness and headaches. Mild cognitive impairment 04/06/2025 Assessment & Plan (04/06/2025 5:14 PM CDT): Mild cognitive impairment Slower processing and memory issues, potentially impacted by Parkinson's and medications. Orthostatic hypotension 04/06/2025 Assessment & Plan (04/06/2025 5:14 PM CDT): Orthostatic hypotension Dizziness and symptoms possibly exacerbated by amlodipine and amitriptyline. - Monitor blood pressure at home. - Discuss with primary care provider about potentially stopping amlodipine. - Consider medication to increase blood pressure if symptoms persist. 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 Subjective weakness 07/16/2017 Assessment & Plan (03/23/2021 [...] decline, nothing limiting just 'not what I'd like. Prior work-up has been unrevealing. Call if [...] how he does. 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 [...] 1 Overview (12/23/2016): Analgesic overuse headache ^ Encounters Date Type Department Care Team Description 04/06/2025 1:00 PM CDT [facility] Visit [facility] [address] Jose J De Dios MD Imbalance (Primary Dx); Headache disorder; Parkinson's disease without dyskinesia, with fluctuating manifestations (HCC); Mild cognitive impairment; Axonal neuropathy from Last 3 Months Surgical History Surgery Date Site/Laterality Comments OTHER SURGICAL HISTORY Septoplasty, sinus surgery OTHER SURGICAL HISTORY Rt bone spur on ankle OTHER SURGICAL HISTORY amp finger tip middle finger left hand ELBOW SURGERY Bilateral January and February 2025 pinched nerve Medical History Medical History Date Comments Headache Headache Dizziness Dizziness Hypertension Hypertension Social History Tobacco Use Types Packs/Day Years Used Date Smoking Tobacco: Never Smokeless Tobacco: Never Alcohol Use Standard Drinks/Week Comments No 0 (1 standard drink = 0.6 oz pur e alcohol) AUDIT-C Answer Date Recorded Frequency of Alcohol Consumption Not on file 04/06/2025 Q2: How many drinks containi ng alcohol do you have on a typical day when you are drinking? 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 Gender Identity Not on file Sexual Orientation Not on file Obstetrics History Last Filed Vital Signs Vital Sign Reading Time Taken Comments Blood Pressure 124/66 04/06/2025 12:46 PM CDT Pulse 74 04/06/2025 12:46 PM CDT Temperature - - Respiratory Rate 18 04/06/2025 12:46 PM CDT Oxygen Saturation 98% 04/06/2025 12:46 PM CDT Inhaled Oxygen Concentration - - Weight 79.4 kg (175 lb) 04/06/2025 12:46 PM CDT Height 188 cm (6' 2) 04/06/2025 12:46 PM CDT Body Mass Index 22.47 04/06/2025 12:46 PM CDT Plan of Treatment Health Maintenance Due Date Last Done Comments Colon Cancer Screening-Colonoscopy 1950 Depression Screening 1950 Fall Risk Assessment 1950 Hepatitis C Screening 1950 DTaP/Tdap/Td Vaccine (1 - Tdap) 1962 Hepatitis B Screening 1969 Pneumococcal vaccine 65+ (1 of 1 - PCV) 2001 Zoster Vaccine (2 of 3) 12/12/2013 10/17/2013 Well Visit 65+ 2016 Influenza Vaccine (#1) 2025 0, 09/12/2013, 09/27/2012 Insurance MEDICARE [facility] MEDICARE [facility] Care Teams Emergency Vehicle Technician Relationship Specialty Start Date End Date Jacinto Leon MD [address] [facility] [address] [place] [address] PCP - General 05/10/16
[2025-05-01 10:23] VITALS: BP 94/55; PULSE 73; RESP 18; TEMP 36.6; O2SAT 100
--- NOTE | 2025-05-01 10:41 | PC.NURSE ---
Patient BP dropped from 126/64 to 87/64 going from supine to sitting position. Provider aware of these findings
[2025-05-01 10:42] VITALS: BP 126/64; BP 87/64; PULSE 68; PULSE 75
--- OUTSIDE RECORDS SUMMARY | 2025-05-01 10:54 | XMS_ITS | Clinical Summary ---
Author Organization [facility] Building [address] Address [address] [place] [address] Care Team Providers Care Certified Nurse Practitioner Name Role Phone Jacinto Leon MD Primary Care Provider [phone] Allergies Active Allergy Reactions Criticality Noted Date [...] he does. 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
--- NOTE | 2025-05-01 11:01 | ECG_ITS ---
Test Date: 2025-05-01 11:06:40 Measurements Intervals [place] Rate: 65 P: 0 [place]: 126 QRS: 40 QRSD: 92 T: 74 QT: 393 QTc: 409 Interpretive Statements SINUS RHYTHM NORMAL ECG Compared to ECG 07/12/2024 04:36:42 Short [place] interval no longer present Electronically Signed On 05-01-2025 11:10:08 CDT by Xu Gaines D.O.
[2025-05-01] MEDS: LACTATED RINGERS 1,000 ML 999 ML IV CONT ×2 (11:41)
[2025-05-01 11:45] VITALS: BP 119/63; PULSE 67; RESP 17; O2SAT 98
[2025-05-01 11:45] LABS: Hematocrit 40.8 % (42.0-52.0); Hemoglobin 14.0 g/dL (14.0-18.0); Immature Granulocyte Percent A 0.5 % (0-0.5); Lymphocytes Absolute Auto 1.55 K/mm3 (0.9-3.2); Mean Corpuscular HGB Conc 34.3 g/dl (32-36); Mean Corpuscular Hemoglobin 32.0 pg (26-34); Mean Corpuscular Volume 93.2 fl (80-100); Nucleated Red Blood Cells Absolute Auto 0.000 K/mm3 (0.0-0.012); Nucleated Red Blood Cells Perc 0.0 % (0.0-0.2); Platelet Count Result 177 k/mm3 (150-375); Red Blood Count 4.38 M/mm3 (4.6-6.20); White Blood Count 8.3 K/mm3 (4.5-10.0)
[2025-05-01 12:00] LABS: INR 1.0; Prothrombin Time 13.7 Seconds (11.1-14.7)
[2025-05-01 12:02] LABS: Partial Thromboplastin Time 31.9 Seconds (22.3-36.8)
[2025-05-01 12:04] LABS: Alanine Aminotransferase 6 U/L (6-50); Albumin Level 4.6 g/dL (3.5-5.1); Alkaline Phosphatase 72 U/L (38-126); Anion Gap 10 mmol/L (4-12); Aspartate Amino Transferase 22 U/L (17-59); Bilirubin,Total 0.7 mg/dL (0.2-1.3); Blood Urea Nitrogen 27 mg/dL (9-20); Calcium 9.9 mg/dL (8.4-10.2); Carbon Dioxide 25 mmol/L (22-30); Chloride 104 mmol/L (98-107); Estimated CRCL calculation 45 ml/min; Estimated Glomerular Filt Rate 46; Glucose 98 mg/dL (65-110); Lipase 288 U/L (23-300); Magnesium 2.3 mg/dL (1.6-2.3); Potassium 4.7 mmol/L (3.4-5.0); Sodium 139 mmol/L (137-145); Total Protein 7.4 g/dL (6.3-8.2)
[2025-05-01 12:21] LABS: Influenza A QL RT-PCR Negative (Negative); Influenza B QL RT-PCR Negative (Negative); RSV RNA, RT-PCR Negative (Negative); SARS-CoV-2 RNA PCR Negative (Negative)
--- NOTE | 2025-05-01 12:43 | ED_ITS ---
HPI - General Adult General Chief complaint: Recheck/Abnormal Lab/Rx Stated complaint: low BP Time Seen by Provider: 05/01/25 10:35 History of Present Illness HPI narrative: This is a 75-year-old male presenting ED with low blood pressures. Patient has Parkinson's disease. He has been having orthostatic symptoms they have been monitoring his blood pressure it ranges anywhere from 60/40 to the low 100s. He has been taken off his antihypertensive meds. He has no other symptoms such as fevers chills nausea vomiting diarrhea chest pain difficulty breathing abdominal pain or urinary symptoms. Related Data Home Medications ?Medication ?Instructions ?Recorded ?Confirmed ?Last Taken ?Type tamsulosin 0.4 mg capsule 0.4 mg PO BID 08/27/19 01/23/25 12/31/24 History omega-3 fatty acids 1,000 mg 1,000 mg PO DAILY 02/19/24 01/23/25 12/29/24 History capsule (Fish Oil Concentrate) mecobalamin (vitamin B12) 1,000 1,000 mcg PO DAILY 12/02/24 01/23/25 12/29/24 History mcg chewable tablet Allergies Allergy/AdvReac Type Severity Reaction Status Date / Time propoxyphene (From Allergy Intermediate shock Verified 05/01/25 10:39 Darvocet-N) Sulfa (Sulfonamide Allergy Intermediate Rash Verified 05/01/25 10:39 Antibiotics) [id number] Reductase AdvReac muscle Verified 05/01/25 10:39 Inhibitor aches PMFSH Past Medical History Medical History Hypertension 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 MCI (mild cognitive impairment) Parkinsons disease Lower back pain Cervical radiculopathy 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 Peripheral neuropathy PERLA positive Nail avulsion of toe Cataract (lens) fragments in eye following cataract surgery, bilateral BPH (benign prostatic hyperplasia) CKD (chronic kidney disease) Cervical spinal stenosis Allergies Migraines Lower urinary tract symptoms (LUTS) Gout Fungal infection of toenail Hyperlipidemia Right foot pain Chronic sinusitis Essential (primary) hypertension Surgical History Surgical History Hx of sinus surgery History of ankle surgery Family History Family History Mother Diabetes mellitus Coronary artery disease Father Coronary artery disease Sibling Parkinson disease Sibling Parkinson disease Social History Social History (Updated 04/28/25 @ 11:05 by Fatimah Burger) Social History: Mr. Laboy lives in [place] with his Alaina. 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 He is a lifelong non-smoker. He denies alcohol use, and other illicit substance use. He wishes to be a full code and he has designated his , Alaina Laboy, to be his surrogate decision maker. Caffeine-soda Smoking status: Never smoker Second hand tobacco smoke exposure: Yes Alcohol intake: never Substance use: never Substance use type: does not use Lack of Transportation: No Lack of Food: Never True Current Housing: I Have Housing Concerned About Future Housing: No Difficulty Paying Gas/Electric Bills: No Difficulty Paying for Meds: No Currently Unemployed: No Education: High School Diploma/GED Difficulty w/ Childcare or Family Care: No Living arrangements: with family Occupation/Education: other Gender identity (if verbalized by the patient): Male Spiritual care concerns: No Exam 2 Narrative: APPEARANCE: No apparent distress. Head: atraumatic. EYES: EOMI, NOSE: Atraumatic NECK: Trachea midline RESPIRATORY: No increased rate of breathing clear to auscultation CARDIOVASCULAR: RRR, no peripheral edema ABDOMINAL: Non-distended soft nontender MUSCULOSKELETAl: No obvious deformities NEURO: Alert. Moving 4/4 extremities SKIN:: Warm, dry. Normal color PSYCHIATRIC: Normal affect Course Vital Signs Vital signs: Vital Signs Temperature 97.9 F 05/01/25 10:23 Pulse Rate 73 05/01/25 10:23 Respiratory Rate 18 05/01/25 10:23 Blood Pressure 94/55 L 05/01/25 10:23 Pulse Oximetry 100 05/01/25 10:23 Oxygen Delivery Room Air 05/01/25 10:23 Temperature 97.9 F 05/01/25 10:23 Pulse Rate 67 05/01/25 11:45 Respiratory Rate 17 05/01/25 11:45 Blood Pressure 119/63 05/01/25 11:45 Pulse Oximetry 98 05/01/25 11:45 Oxygen Delivery Room Air 05/01/25 10:23 Medical Decision Making MDM Narrative Medical decision making narrative: -Course: 75-year-old male presenting for orthostatic symptoms. Infectious workup was negative. All laboratory studies within normal limits. Blood pressure responded to fluid resuscitation. He is now able ambulate around the ED with a steady gait although he still has some of his chronic gait instability. His fluctuating blood pressures are likely a combination of dehydration and autonomic dysfunction from his Parkinson's disease. Patient be discharged follow-up with his neurologist and primary care physician. -DDX includes but is not limited to: Under dysfunction, infection, dehydration -Co-morbidities complicating care: Parkinson's disease Vital Signs Vital Signs: Vital Signs Temperature 97.9 F 05/01/25 10:23 Pulse Rate 73 05/01/25 10:23 Respiratory Rate 18 05/01/25 10:23 Blood Pressure 94/55 L 05/01/25 10:23 Pulse Oximetry 100 05/01/25 10:23 Oxygen Delivery Room Air 05/01/25 10:23 Temperature 97.9 F 05/01/25 10:23 Pulse Rate 67 05/01/25 11:45 Respiratory Rate 17 05/01/25 11:45 Blood Pressure 119/63 05/01/25 11:45 Pulse Oximetry 98 05/01/25 11:45 Oxygen Delivery Room Air 05/01/25 10:23 Lab Data 05/01/25 11:38 05/01/25 11:38 Labs: Lab Results 05/01/25 05/01/25 Range/Units 11:38 12:55 WBC 8.3 (4.5-10.0) K/mm3 RBC 4.38 L (4.6-6.20) M/mm3 Hgb 14.0 (14.0-18.0) g/dL Hct 40.8 L (42.0-52.0) % MCV 93.2 (80-100) fl MCH 32.0 (26-34) pg MCHC 34.3 (32-36) g/dl RDW 12.2 (11.5-14.5) % Plt Count 177 (150-375) k/mm3 MPV 9.1 (7.4-10.4) fl Immature Gran % (Auto) 0.5 (0-0.5) % Neut % (Auto) 73.3 H (45.5-73.1) % Lymph % (Auto) 18.6 (18.3-44.2) % [place] % (Auto) 5.9 (2.6-8.5) % Eos % (Auto) 1.3 (0-4.4) % Baso % (Auto) 0.4 (0.2-1.2) % Lymph # (Auto) 1.55 (0.9-3.2) K/mm3 [place] # (Auto) 0.5 (0.1-0.6) K/mm3 Eos # (Auto) 0.1 (0-0.3) K/mm3 Baso # (Auto) 0.0 (0.0-0.1) K/mm3 Abs Immat Gran (auto) 0.04 H (0.00-0.031) K/mm3 Absolute Neuts (auto) 6.1 (1.3-6.7) K/mm3 Absolute Nucleated RBC 0.000 (0.0-0.012) K/mm3 Nucleated RBC % 0.0 (0.0-0.2) % PT 13.7 (11.1-14.7) Seconds INR 1.0 APTT 31.9 (22.3-36.8) Seconds Sodium 139 (137-145) mmol/L Potassium 4.7 (3.4-5.0) mmol/L Chloride 104 (98-107) mmol/L Carbon Dioxide 25 (22-30) mmol/L Anion Gap 10 (4-12) mmol/L BUN 27 H (9-20) mg/dL Creatinine 1.48 H (0.7-1.3) mg/dL Estim Creat Clear Calc 45 ml/min Estimated GFR 46 L (59 - ) Glucose 98 (65-110) mg/dL Lactic Acid 1.0 (0.7-2.0) mmol/L Calcium 9.9 (8.4-10.2) mg/dL Magnesium 2.3 (1.6-2.3) mg/dL Total Bilirubin 0.7 (0.2-1.3) mg/dL AST 22 (17-59) U/L ALT 6 (6-50) U/L Alkaline Phosphatase 72 (38-126) U/L Total Protein 7.4 (6.3-8.2) g/dL Albumin 4.6 (3.5-5.1) g/dL Lipase 288 (23-300) U/L Urine Color Yellow (Yellow) Urine Appearance Clear (Clear) Urine pH 7.5 (5.0-9.0) Ur Specific [place] 1.010 (1.001-1.035) Urine Protein Negative (Negative) mg/dL Urine Glucose (UA) Negative (Negative) mg/dL Urine Ketones Negative (Negative) mg/dL Ur Blood (Man) Negative (Negative) Urine Nitrate Negative (Negative) Urine Bilirubin Negative (Negative) Urine Urobilinogen 0.2 (<2.0) mg/dL Leukocyte Esterase Rfl Negative (Negative) SANDIE/UL Influenza A (RT-PCR) Negative (Negative) Influenza B (RT-PCR) Negative (Negative) RSV (RT-PCR) Negative (Negative) SARS-CoV-2 RNA (RT-PCR) Negative (Negative) Discharge Plan Discharge Clinical Impression: Chronic hypotension, Dehydration Patient Disposition: Home Condition: Stable Instructions: Antibiotic Form, Dehydration (DC) Additional Instructions: He was seen in the emergency department for low blood pressures. This is likely a combination of dehydration an autonomic dysfunction from your Parkinson's disease. Please follow-up with your general practitioner and neurologist for further management. Please drink plenty of fluids. You can use compression stockings to see if those help with your dizziness. Return to ED if you develop fevers or any new or worsening symptoms. Patient Language: Vietnamese Prescriptions: No Action tamsulosin 0.4 mg capsule 0.4 mg PO BID omega-3 fatty acids [Fish Oil Concentrate] 1,000 mg capsule 1,000 mg PO DAILY mecobalamin (vitamin B12) 1,000 mcg tablet,chewable 1,000 mcg PO DAILY carbidopa-levodopa [Sinemet] 25-100 mg tablet 1 tablet PO TID Qty: 90 6RF Rx Instructions: start with 1 tablet at bedtime for 1 week then 1 tablet twice a day for 1 week then 1 tablet 3 times a day meclizine 25 mg tablet 25 mg PO BID PRN (Reason: dizziness) Qty: 20 0RF rizatriptan 10 mg tablet See Rx Instructions PO .COMPLEX Qty: 20 3RF Rx Instructions: take 1 tab at onset of headache; if no relief may repeat 1 tab after at least 2 hrs; max = 3 tabs/24 hr PO amitriptyline 25 mg tablet 25 mg PO QHS Qty: 90 2RF cholecalciferol (vitamin D3) 1,250 mcg (50,000 unit) capsule 1,250 mcg PO WEEKLY Qty: 14 1RF fluticasone propionate 50 mcg/actuation spray,suspension See Rx Instructions .ROUTE .COMPLEX Qty: 16 0RF Dose Instruction: Use 2 spray(s) in each nostril once daily Rx Instructions: Use 2 spray(s) in each nostril once daily allopurinol 100 mg tablet See Rx Instructions .ROUTE .COMPLEX Qty: 90 0RF Dose Instruction: TAKE 1 TABLET BY MOUTH ONCE DAILY START AFTER COMPLETING INDOMETHACIN Rx Instructions: TAKE 1 TABLET BY MOUTH ONCE DAILY START AFTER COMPLETING INDOMETHACIN ezetimibe 10 mg tablet See Rx Instructions .ROUTE .COMPLEX Qty: 90 1RF Dose Instruction: Take 1 tablet by mouth once daily Rx Instructions: Take 1 tablet by mouth once daily Linzess 145 mcg capsule 145 mcg PO DAILY Qty: 90 0RF Follow-up/Referrals: Mario Willett MD [Primary Care Provider] - 1 Week (Hypotension)
[2025-05-01] MEDS: LACTATED RINGERS 500 ML 999 ML IV CONT (13:00)
[2025-05-01 13:15] LABS: Add Urine Microscopic? NO; Appearance Urine Clear (Clear); Glucose Urine UA Negative (Negative); Leukocyte Esterase Ur Negative LEU/UL (Negative); Nitrate Urine Negative (Negative); Specific Grav Ur 1.010 (1.001-1.035)
--- NOTE | 2025-05-01 14:11 | PC.NURSE ---
Patient able to ambulate with steady gate. Patient states he feels better than he did prior to coming to the ED, and doesnt feel more dizzy than normal.
== END 2025-05-01 14:48 | disposition home or self-care (01) ==
PROVIDERS: Emergency Provider Emergency Medicine; PCP Family Medicine
DX: I95.89 Other hypotension (principal); E86.0 Dehydration; Z20.822 Contact with and (suspected) exposure to COVID-19; G20.A1 Parkinson's disease without dyskinesia, without mention of fluctuations; I12.9 Hypertensive chronic kidney disease with stage 1 through stage 4 chronic kidney disease, or unspecified chronic kidney disease; N18.9 Chronic kidney disease, unspecified; E78.5 Hyperlipidemia, unspecified; J32.9 Chronic sinusitis, unspecified; N40.0 Benign prostatic hyperplasia without lower urinary tract symptoms; G62.9 Polyneuropathy, unspecified; M10.9 Gout, unspecified; Z77.22 Contact with and (suspected) exposure to environmental tobacco smoke (acute) (chronic); Z79.899 Other long term (current) drug therapy
CPT/HCPCS: 36415; 71045; 80053; 81003; 83605; 83690; 83735; 85025; 85610; 85730; 87040; 87637; 93005; 96360; 96361; 99283; J7120